=== PATIENT | female | born 1975 | race Caucasian/White ===

== ENCOUNTER 2018-02-26 08:07 | Emergency (ER) | payer OTHER ==
[2018-02-26 08:13] VITALS: BP 138/108
--- NOTE | 2018-02-26 08:31 | EDPHY ---
HPI/HX/ROS/PE/MDM Narrative: CHIEF COMPLAINT: Sore throat HPI: This patient is a 42 y/o female complaining of sore throat. She has associated fever and swollen glands. She has also noted "little pustules" at the back of her throat. Her symptoms began about three days ago. She was evaluated at a urgent care yesterday and had a negative strep test. She was discharged home with ibuprofen. Today, she woke with worse throat pain. She finds it difficult to swallow. Her pain is worse on the left than the right. She has measured her fever at around 101 degrees for the last three days. She denies cough, chest pain, shortness of breath, abdominal pain, urinary complaints, or other associated symptoms. REVIEW OF SYSTEMS: Aside from elements discussed in the HPI, a comprehensive 10-point review of systems was reviewed and is negative. PMH: Denies. 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 Lives in [place]. PHYSICAL EXAM: General:Patient is alert, in no acute distress. ENT:Eyes are normal to inspection. Moderate tonsillar erythema and exudates bilaterally, no asymmetry. Oropharyngeal erythema. Neck: Tender lymphadenopathy bilaterally, primarily on the left. Full range of motion. Respiratory:No respiratory distress. Breath sounds normal bilaterally. Cardiovascular: Regular rate and rhythm. Strong peripheral pulses. Normal cap refill. Neuro: Oriented x3. Normal motor function. Normal sensory function. ED Course: 42 y/o female presents with three day history of worsening sore throat. Exam reveals bilateral tonsillar erythema and exudates. No asymmetry. 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 Plan for IV fluids and IV steroid for swelling reduction. The patient adamantly declines "any sort of needle". I explained the benefits and side effects of Decadron. Patient states she has had an unfavorable reaction to Prednisone in the past and declines steroid medication. She would like to try antibiotics as she feels her symptoms are similar to prior diagnoses episodes of strep throat. Plan to discharge the patient home in good condition with prescription for Amoxicillin and [place] for pain control. Follow up and return precautions discussed. She understands she will need to return for IV rehydration if she is unable to swallow water. She will follow up with primary care. She is comfortable with this plan. MDM: This patient presents with complaint of worsening sore throat after a negative rapid strep test, but unfortunately workup and treatment is limited by patient' s refusal of anything involving a needle. She appears well-hydrated and there is no current evidence of abscess or deep space infection. At her request, we will treat her with amoxicillin. We discussed strict return precautions. General Time Seen by Provider: 02/26/18 08:26 Initial Vital Signs: Initial Vital Signs Temperature (C) 37.6 C 02/26/18 08:10 Heart Rate 104 H 02/26/18 08:10 Respiratory Rate 20 02/26/18 08:10 Blood Pressure 138/108 H 02/26/18 08:10 O2 Sat (%) 96 02/26/18 08:10 O2 Delivery Mode Room Air Allergies/Adverse Reactions: Sulfa (Sulfonamide Antibiotics) Allergy (Verified 02/26/18 08:10) Home Medications: Medication Instructions Recorded Amoxicillin Trihydrate 500 mg PO TID 7 Days cap 02/26/18 [Amoxicillin] Hydrocodone/APAP 5/325 [[place] 1 - 2 tab PO Q4H PRN #7 tab 02/26/18 5/325 (RX)] Departure - Departure Disposition: Home, Routine, Self-Care Clinical Impression: Acute pharyngitis Condition: Good Instructions: Pharyngitis (ED) Additional Instructions: Follow-up with your primary doctor in 2-3 days. Take Amoxicillin as prescribed. Use Tylenol and/or ibuprofen as directed as needed for pain and fever. Take [place] as needed for severe pain. Do not take [place] with Tylenol. Drink plenty of fluids. Return to the Emergency Department for high fever, difficulty swallowing, difficulty tolerating liquids, neck pain or stiffness, shortness of breath or other concerns. Adult Pain & Fever Control: We recommend Acetaminophen (Tylenol) and Ibuprofen (Motrin,Advil) for pain and fever control. When fever is high or pain severe, both drugs can be used at the same time, but at different intervals. Please note the time differences. Your dose is: Acetaminophen 650mg every 4 to 6 hours Ibuprofen 600mg every 6-8 hours with food Note: do not take Acetaminophen with Hydrocodone (Vicodin, Lortab) or Oxycodone (Percocet). These medications also contain Acetaminophen. No more than 3000mg of Acetaminophen should be taken in 24 hours (for an adult). Referrals: Shalom Salcido MD [[facility] [place] - As per Instructions Prescriptions: Amoxicillin Trihydrate [Amoxicillin] 500 mg PO TID 7 Days cap Hydrocodone/APAP 5/325 [[place] 5/325 (RX)] 1 - 2 tab PO Q4H PRN #7 tab PRN Reason: Pain, Moderate Report Scribed for: Donovan Gaona Report Scribed by: Kaur Burton Date of Report: 02/26/18 Time of Report: 08:39 Physician Review and Approval Statement: Portions of this note were transcribed by an ED scribe. I personally performed the history, physical exam, and medical decision making; and confirm the accuracy of the information in the transcribed note.
== END 2018-02-26 08:45 | disposition home or self-care (01) ==
LOC: EDBD 08:07
DX: J02.9 Acute pharyngitis, unspecified (principal)

== ENCOUNTER 2018-02-28 08:12 | Emergency (ER) | payer OTHER ==
--- NOTE | 2018-02-28 08:41 | EDPHY ---
H & P Time Seen by Provider: 02/28/18 08:24 HPI/ROS: CHIEF COMPLAINT: Sore throat HISTORY OF PRESENT ILLNESS: Patient is a 42-year-old female who presents to the emergency department with ongoing sore throat. She states her symptoms started on Saturday. She was seen on Saturday by her primary care physician and had a negative strep screen. On Saturday her symptoms persisted and she came to the emergency department. While here she refused IV access and steroids. She was started on amoxicillin and given Vicodin. Patient states her symptoms have continued. She is not feeling any better."I met my wits end."Patient states she has trouble eating due to the pain. She has no shortness of breath. She has had mild nausea from the medicine but no vomiting. No diarrhea. No abdominal pain. No rash. REVIEW OF SYSTEMS: My complete review of systems is negative except as mentioned in the HPI. Past Medical/Surgical History: Denies Past surgical history: Noncontributory Social history: The patient does not smoke Smoking Status: Never smoked Physical Exam: 37.8, 144/100, 1 1, 18, 97% on room air GENERAL: Mild acute distress, alert. HEENT: Eyes normal to inspection, no signs of dehydration. The patient has pharyngeal erythema with white colored discharge. Uvula is midline. There is no asymmetry. No visible signs of airway occlusion. NECK: [No thyromegaly, mild bilateral anterior lymphadenopathy, supple. No stridor RESPIRATORY: Clear to auscultation bilaterally, no rales, rhonchi or wheezing. CVS: Regular rate and rhythm, no rubs, murmurs, or gallops. ABDOMEN: Soft, nontender, nondistended, no organomegaly. BACK: Normal to inspection, no CVA tenderness. SKIN: Normal color, no rash, warm, dry. No pallor. EXTREMITIES: No pedal edema, no calf tenderness, no joint swelling. NEURO/PSYCH: Alert and oriented, normal mood and affect, normal motor sensory exam. No obvious cranial nerve deficit. Constitutional: Initial Vital Signs Temperature (C) 37.8 C 02/28/18 08:13 Heart Rate 101 H 02/28/18 08:13 Respiratory Rate 18 02/28/18 08:13 Blood Pressure 144/100 H 02/28/18 08:13 O2 Sat (%) 97 02/28/18 08:13 O2 Delivery Mode Room Air Allergies/Adverse Reactions: Sulfa (Sulfonamide Antibiotics) Allergy (Verified 02/28/18 08:13) Home Medications: Medication Instructions Recorded Amoxicillin Trihydrate 500 mg PO TID 7 Days cap 02/26/18 [Amoxicillin] Hydrocodone/APAP 5/325 [[place] 1 - 2 tab PO Q4H PRN #7 tab 02/26/18 5/325 (RX)] Clindamycin HCl [Clindamycin] 300 mg PO TID #30 cap 02/28/18 predniSONE 20 mg PO DAILY 4 Days tab 02/28/18 Medical Decision Making ED Course/Re-evaluation: In the emergency department I discussed possible etiologies with the patient. I answered all her questions. I reviewed the patient's medical record. An IV was placed. She was given 1 L of normal saline. She was given Toradol 30 mg IV. She is given methylprednisolone 125 mg IV. I rechecked the patient while here. She was feeling much better on recheck. She had no swelling. She had no wrist distress. She felt comfortable charge. She was given warnings prior to leaving. She will be switched to clindamycin. She is given prescription. She was also given a prescription for prednisone. Differential Diagnosis: My differential includes but is not limited to pharyngitis, tracheitis, epiglottitis, peritonsillar abscess, retropharyngeal abscess, viral illness, influenza - Data Points Laboratory Results: 02/28/18 09:15 Nasal Influenza A PCR NEGATIVE FOR FLU A (NEGATIVE) Nasal Influenza B PCR NEGATIVE FOR FLU B (NEGATIVE) Medications Given: Discontinued Medications Sodium Chloride (Ns) 1,000 mls @ 0 mls/hr IV EDNOW ONE; Wide Open PRN Reason: Protocol Stop: 02/28/18 08:48 Last Admin: 02/28/18 09:27 Dose: 1,000 mls Ketorolac Tromethamine (Toradol) 30 mg IVP EDNOW ONE Stop: 02/28/18 08:48 Last Admin: 02/28/18 09:27 Dose: 30 mg Methylprednisolone Sodium Succinate (Solu-Medrol) 125 mg IVP EDNOW ONE Stop: 02/28/18 08:49 Last Admin: 02/28/18 09:33 Dose: 125 mg Ondansetron HCl (Zofran) 4 mg IVP EDNOW ONE Stop: 02/28/18 08:48 Last Admin: 02/28/18 09:25 Dose: 4 mg Departure - Departure Disposition: Home, Routine, Self-Care Clinical Impression: Acute pharyngitis Qualifiers: Pharyngitis/tonsillitis etiology: unspecified etiology Qualified Code(s): J02.9 - Acute pharyngitis, unspecified Condition: Good Instructions: Pharyngitis (ED) Additional Instructions: Switch to clindamycin. Discontinue your amoxicillin. Return with increasing pain, shortness of breath, vomiting, present fever or any other concerns. Referrals: Mattie Partida MD [Medical Doctor] - 2-3 days without fail Prescriptions: Clindamycin HCl [Clindamycin] 300 mg PO TID #30 cap predniSONE 20 mg PO DAILY 4 Days tab
[2018-02-28] MEDS ORDERED: NS 1,000 ML IV ONE (08:47)
[2018-02-28] MEDS ORDERED: KETOROLAC 30 MG/1 ML SDV IVP ONE (08:47)
[2018-02-28] MEDS ORDERED: ONDANSETRON 4 MG/2 ML VIAL IVP ONE (08:47)
[2018-02-28] MEDS ORDERED: methylPREDNISolone SOD SUCC 125 MG/2 ML VIAL IVP ONE (08:48)
[2018-02-28 11:39] VITALS: BP 131/87; PULSE 99; RESP 16; TEMP 100.6; O2SAT 94
== END 2018-02-28 11:39 | disposition home or self-care (01) ==
DX: J02.9 Acute pharyngitis, unspecified (principal); E86.9 Volume depletion, unspecified
CPT/HCPCS: 96374; J1885; J2405; J2930

== ENCOUNTER 2018-03-02 06:40 | Inpatient (IN) | payer OTHER ==
--- NOTE | 2018-03-02 07:01 | EDPHY ---
HPI/HX/ROS/PE/MDM Narrative: CHIEF COMPLAINT: Sore throat HPI: The patient is a 42-year-old female with no significant past medical history. This is her 3rd ER visit within the last several days related to sore throat. I initially saw her 4-5 days ago for mild sore throat. At that time she was refusing any IV or blood work and was treated empirically with amoxicillin and Vicodin. She returned 2 days later, was treated with IV fluids , had a negative influenza swab and was switched to clindamycin. She now returns again stating that her sore throat continues to be severe. She denies any unilateral nature to the pain but states she has been in the able now to yogurt because of the pain. She complains of diffuse malaise and has now developed vomiting and diarrhea. She denies any difficulty breathing. She is still able to tolerate water by mouth. REVIEW OF SYSTEMS: Aside from elements discussed in the HPI, a comprehensive 10-point review of systems was reviewed and is negative. PMH: None significant. SOCIAL HISTORY: The patient does not smoke. She denies drug abuse. PHYSICAL EXAM: General:Patient is alert, in no acute distress. She is nontoxic appearing. ENT:Eyes are normal to inspection. Bilateral tonsillomegaly with scattered exudate and erythema is present. There is no asymmetry. There is no drooling. Normal voice. No stridor. Tender cervical lymphadenopathy is present bilaterally. Neck: Normal inspection. Full range of motion. No meningismus. Respiratory:No respiratory distress. Breath sounds normal bilaterally. Cardiovascular: Regular rate and rhythm. Strong peripheral pulses. Normal cap refill. Abdomen:The abdomen is nontender to palpation. There are no peritoneal signs. There are normal bowel sounds. Back: Normal to inspection. No tenderness to palpation. Skin: Normal color. No rash. Warm and dry. Extremities: Normal appearance. Full range of motion. Neuro: Oriented x3. Normal motor function. Normal sensory function. ED Course: 42-year-old female presents with sore throat. This is her 3rd ER visit in the past week, and she is currently on a course of Clindamycin and Prednisone. Exam reveals bilateral tonsil hypertrophy with scattered exudate and erythema. No asymmetry, drooling, or stridor. IV established. Plan for labs including CBC, chemistries, BHCG, and [place] test. Plan to administer 0.2mg IV Dilaudid, 4mg IV Zofran, 1L IV NS for symptom relief. Plan for CT neck to rule out abscess or other acute processes. [place] screen negative. Patient was negative for influenza A and B at her prior ED visit on 02/28/18. Laboratory studies otherwise largely unremarkable. WBC elevated at 12,000. 08:[address] Bautista, radiologist. CT neck negative for abscess or other acute processes. 08:30 Reassessed patient. Discussed imaging results. Patient is tearful throughout our discussion. I offered her discharge home with ENT referral vs. admission. She would like to be admitted as she still feels she is unable to swallow appropriately and is concerned about going home. She continues to feel she is at her "wit's end". 08:37 Spoke with hospitalist service. Plan to consult with ENT. Dr. Nieves accepts admission for pharyngitis. 08:[address] Bautista, radiologist. He notes mild hyperemia of the epiglottis on the patient's neck CT. Patient's clinical presentation is not consistent with epiglottis at this time, but she will be monitored for changing signs and symptoms. 08:46 Consulted with ALEXIA Adams for otolaryngology. ENT will consult the patient as needed. Plan to administer 1gm IV Rocephin. The patient will be admitted to the floor as above. - Data Points Imaging Results: Imaging Impressions Neck CT 03/02/18 07:46 Impression: Inflammatory changes seen in the peritonsillar region as well as in the parapharyngeal tissues. There is heterogeneous attenuation without a definite drainable abscess. Mild hyperemia of the epiglottis is seen. Results called and discussed with Donovan Gaona MD on 03/02/2018 at 8:41 Imaging: Discussed imaging studies w/ score caller Radiologist Laboratory Results: Laboratory Results 03/02/18 07:07 03/02/18 07:07 03/02/18 03/02/18 03/02/18 07:07 07:07 07:07 WBC 11.96 10^3/uL H 10^3/uL (3.80-9.50) RBC 4.35 10^6/uL 10^6/uL (4.18-5.33) Hgb 13.7 g/dL g/dL (12.6-16.3) Hct 39.0 % % (38.0-47.0) MCV 89.7 fL fL (81.5-99.8) MCH 31.5 pg pg (27.9-34.1) MCHC 35.1 g/dL g/dL (32.4-36.7) RDW 11.8 % % (11.5-15.2) Plt Count 441 10^3/uL H 10^3/uL (150-400) MPV 10.0 fL fL (8.7-11.7) Neut % (Auto) 72.1 % % (39.3-74.2) Lymph % (Auto) 16.6 % % (15.0-45.0) [place] % (Auto) 10.5 % % (4.5-13.0) Eos % (Auto) 0.0 % L % (0.6-7.6) Baso % (Auto) 0.3 % % (0.3-1.7) Nucleat RBC Rel Count 0.0 % % (0.0-0.2) Absolute Neuts (auto) 8.63 10^3/uL H 10^3/uL (1.70-6.50) Absolute Lymphs (auto) 1.98 10^3/uL 10^3/uL (1.00-3.00) Absolute Monos (auto) 1.25 10^3/uL H 10^3/uL (0.30-0.80) Absolute Eos (auto) 0.00 10^3/uL L 10^3/uL (0.03-0.40) Absolute Basos (auto) 0.04 10^3/uL 10^3/uL (0.02-0.10) Absolute Nucleated RBC 0.00 10^3/uL 10^3/uL (0-0.01) Immature Gran % 0.5 % % (0.0-1.1) Immature Gran # 0.06 10^3/uL 10^3/uL (0.00-0.10) Sodium 142 mEq/L mEq/L (135-145) Potassium 3.3 mEq/L L mEq/L (3.5-5.2) Chloride 102 mEq/L mEq/L (97-110) Carbon Dioxide 26 mEq/l mEq/l (22-31) Anion Gap 14 mEq/L mEq/L (8-16) BUN 9 mg/dL mg/dL (7-23) Creatinine 0.7 mg/dL mg/dL (0.6-1.0) Estimated GFR > 60 Glucose 83 mg/dL mg/dL (70-100) Calcium 8.9 mg/dL mg/dL (8.5-10.4) Total Bilirubin 0.5 mg/dL mg/dL (0.1-1.4) Conjugated Bilirubin 0.3 mg/dL mg/dL (0.0-0.5) Unconjugated Bilirubin 0.2 mg/dL mg/dL (0.0-1.1) AST 23 IU/L IU/L (14-46) ALT 38 IU/L IU/L (9-52) Alkaline Phosphatase 86 IU/L IU/L (38-126) Total Protein 7.7 g/dL g/dL (6.3-8.2) Albumin 4.0 g/dL g/dL (3.5-5.0) Beta HCG, Qual NEGATIVE Monoscreen NEGATIVE (NEGATIVE) Medications Given: Ceftriaxone Sodium/Dextrose (Rocephin 1 Gm (Premix)) 50 mls @ 100 mls/hr IV EDNOW ONE PRN Reason: Protocol Stop: 03/02/18 09:15 Last Admin: 03/02/18 08:55 Dose: 50 mls Discontinued Medications Hydromorphone HCl (Dilaudid) 0.2 mg IVP EDNOW ONE Stop: 03/02/18 07:05 Last Admin: 03/02/18 07:17 Dose: 0.2 mg Sodium Chloride (Ns) 1,000 mls @ 0 mls/hr IV ONCE ONE; Wide Open PRN Reason: Protocol Stop: 03/02/18 07:04 Last Admin: 03/02/18 07:17 Dose: 1,000 mls Sodium Chloride (Ns) 1,000 mls @ 0 mls/hr IV ONCE ONE PRN Reason: Wide Open Stop: 03/02/18 08:11 Last Admin: 03/02/18 08:11 Dose: 1,000 mls Ondansetron HCl (Zofran) 4 mg IVP EDNOW ONE Stop: 03/02/18 07:20 Last Admin: 03/02/18 07:23 Dose: 4 mg General Time Seen by Provider: 03/02/18 06:50 Initial Vital Signs: Initial Vital Signs Temperature (C) 37.2 C 03/02/18 06:46 Heart Rate 95 03/02/18 06:46 Respiratory Rate 16 03/02/18 06:46 Blood Pressure 154/114 H 03/02/18 06:46 O2 Delivery Mode Room Air Allergies/Adverse Reactions: clindamycin Allergy (Verified 03/02/18 08:58) Sulfa (Sulfonamide Antibiotics) Allergy (Verified 03/02/18 06:45) Home Medications: Medication Instructions Recorded Clindamycin HCl [Clindamycin] 300 mg PO TID #30 cap 02/28/18 predniSONE 20 mg PO DAILY 4 Days tab 02/28/18 Departure - Departure Disposition: [facility] Inpatient Acute Clinical Impression: Pharyngitis Qualifiers: Pharyngitis/tonsillitis etiology: other specified organisms Qualified Code(s): J02.8 - Acute pharyngitis due to other specified organisms Condition: Fair Report Scribed for: Donovan Gaona Report Scribed by: Kaur Burton Date of Report: 03/02/18 Time of Report: 08:26 Physician Review and Approval Statement: Portions of this note were transcribed by an ED scribe. I personally performed the history, physical exam, and medical decision making; and confirm the accuracy of the information in the transcribed note.
[2018-03-02] MEDS ORDERED: NS 1,000 ML IV ONE ×2 (07:03→08:10)
[2018-03-02] MEDS ORDERED: HYDROmorphONE/DILAUDID 2 MG/ML INJ IVP ONE (07:04)
[2018-03-02] MEDS ORDERED: ONDANSETRON 4 MG/2 ML VIAL IVP ONE (07:19)
[2018-03-02 07:20] LABS: PLATELET COUNT 441 10^3/uL (150-400)
[2018-03-02] MEDS ORDERED: IOPAMIDOL (ISOVUE-300) 100 ML BTL ONE (07:51)
[2018-03-02] MEDS ORDERED: OXYCODONE/APAP 5/325 TAB PO PRN (08:44)
[2018-03-02] MEDS ORDERED: ACETAMINOPHEN 325 MG TAB PO PRN (09:58)
[2018-03-02] MEDS ORDERED: LORazepam 0.5 MG TAB PO PRN (09:58)
[2018-03-02] MEDS ORDERED: HYDROmorphONE/DILAUDID 1 MG/ML INJ IVP PRN (09:58)
[2018-03-02] MEDS ORDERED: ONDANSETRON DISINTEGRATING 4 MG TAB PO PRN (09:58)
--- NOTE | 2018-03-02 10:43 | GHP ---
[f rep st] HISTORY AND PHYSICAL DATE OF ADMISSION: 03/02/2018 CHIEF COMPLAINT: Sore throat. HISTORY OF PRESENT ILLNESS: This is a 42-year-old female, who had a sore throat , which started 6 days ago. She was initially seen at urgent care, where she had a negative strep test. She has been seen at the emergency department three additional times. She has been given antibiotics, including amoxicillin. She thus represented, this was changed to clindamycin. She had significant nausea and diarrhea with this. She is not having any diarrhea anymore. She represented to the ED today, tearful and was thus admitted. She describes the pain as severe, burning. She has some pain in bilateral jaws. She has no difficulty breathing. She has had difficulty swallowing due to pain. She has had strep throat before, though she has never had a sore throat this persistent or severe. PAST MEDICAL/SURGICAL HISTORY: None. MEDICATIONS: Please see medication reconciliation. ALLERGIES: Sulfa, clindamycin. SOCIAL HISTORY: She moved to [place] from [place] about 11 months ago. She does not smoke. She rarely drinks. FAMILY HISTORY: Is notable for uterine cancer in her mother. REVIEW OF SYSTEMS: A 10-point review of systems is conducted and is negative except per HPI. PHYSICAL EXAM: VITAL SIGNS: Blood pressure 120/82, heart rate 81, respiration rate 16, satting 95% on room air. Temperature 36.2. GENERAL: The patient is a pleasant female, looks mildly uncomfortable, lying in bed with a mask. HEENT : Shows her to have some mild pustules in the posterior aspect of her pharynx. She has significant pharyngeal erythema. Exam is limited by the availability of an otoscope. She does have significant bilateral cervical lymphadenopathy. She has no stridor. CARDIOVASCULAR: Shows a regular rate and rhythm. No murmurs, rubs, or gallops. PULMONARY: Show lungs clear to auscultation bilaterally. ABDOMEN: Soft, nontender, nondistended. I did not appreciate any splenomegaly. SKIN: Shows no rash. : No [place]. NEUROLOGIC: Shows her to be alert and oriented x3. She is moving all extremities. PSYCHIATRIC: Shows her to be tearful during my interview. LABS: White count is 11.96. Comprehensive metabolic panel shows a potassium of 3.3, otherwise unremarkable. She had a negative flu swab on 28 of February. Monospot was negative today. DATA: 1. I discussed this with Dr. Gaona. We will admit to med/surg. 2. I reviewed her neck CT, it shows mild hyperemia of the epiglottis with some inflammatory changes seen in the pharynx. There is no drainable abscess. IMPRESSION AND PLAN: A 42-year-old female with acute pharyngitis. Acute pharyngitis: Differential includes bacterial, as well as viral causes. We will send a throat culture. We will check for EBV, as well as CMV by PCR. Also consider acute human immunodeficiency virus, as well as herpes can cause severe pharyngitis. Other bacterial causes could include fusiform, chlamydia, diphtheria. If she does not improve, we will consider history evaluation, as well as testing for these. I think empiric Rocephin is appropriate for now. We will give her intravenous steroids, as she is having difficulty tolerating p.o. ENT has been consulted by the ED, and we will see her as an inpatient. This is a high-risk diagnosis, she will be placed in OBS. /[id number]/MODL MTDD
[2018-03-02] MEDS: ONDANSETRON 4 MG/2 ML VIAL IVP PRN ×2 (11:13→15:41)
[2018-03-02] MEDS: HYDROmorphone HCL/NS 0.5 MG/ML SYR IVP PRN ×4 (11:14→23:52)
[2018-03-02] MEDS ORDERED: CEPACOL LOZENGE PO PRN (15:21)
[2018-03-02] MEDS ORDERED: ACETAMINOPHEN 650 MG/20.3 ML UDCUP PO PRN (15:22)
[2018-03-02] MEDS: NS 1,000 ML IV SCH ×2 (15:35→23:52)
[2018-03-02] MEDS: methylPREDNISolone SOD SUCC 40 MG/ML VIAL IVP SCH ×2 (15:35→20:49)
--- NOTE | 2018-03-02 17:44 | GCON ---
[f rep st] CONSULTATION DATE OF CONSULTATION: 03/02/2018 CHIEF COMPLAINT: Severe pharyngeal pain. HISTORY OF PRESENT ILLNESS: This 42-year-old female noted onset of throat pain approximately 6 days ago. She presented 5 days ago to an urgent care facility, where a strep test was performed and was f ound to be negative. She noted persistence of the sore throat and initially was prescribed amoxicill in. Later, she was switched to clindamycin. The clindamycin resulted in diarrhea. She has undergon e negative Monospot testing as well. She presented to the emergency room today due to severe pharyng eal pain, nausea, and vomiting. She has experienced severe odynophagia and has had difficulty mainta ining hydration. PAST MEDICAL HISTORY: Otherwise, noncontributory. MEDICATIONS: She currently takes no medications, other than the clindamycin previously reported. ALLERGIES: Sulfa. EXAMINATION: GENERAL: The patient is an alert, cooperative female in no apparent distress. VITAL S IGNS: Temperature is 37.9, blood pressure 134/93, respirations were 16, and pulse was 82. HEENT: H ead is normocephalic and atraumatic. Examination of the ears revealed clear tympanic membranes bilat erally. Nasal exam was unremarkable. Oral cavity and oropharynx exam reveals tonsils enlarged 3+ wi th severe bilateral exudate. The remainder of the oral cavity and oropharynx were within normal limi ts. Neck: Tender bilateral jugulodigastric adenopathy, measuring approximately 3 x 2 cm bilaterally . Fiberoptic endoscopy was performed. This revealed the presence of extensive exudate of the base o f tongue/lingual tonsils. No significant edema was noted. The airway was widely patent with no sign of compromise. IMPRESSION: Exudative tonsillitis. Her white count upon admission was 11.96 with an increase in abs olute neutrophils. PLAN: At this point, she is receiving IV Rocephin, as well as methylprednisolone. She also has been placed on Zofran. Throat culture is pending. At this point, I feel that all bacterial and viral pa thogens are covered. Her analgesia is adequately managed with her current hydromorphone, and I expec t her nausea to be improved with Zofran. I expect her to recover and discussed the fact that, althou gh this appears to possibly be bacterial, it may be a viral process which is ongoing. She will be fo llowed both during her hospitalization and thereafter. /[id number]/MODL
[2018-03-03] MEDS: ONDANSETRON 4 MG/2 ML VIAL IVP PRN ×2 (04:31→09:37)
[2018-03-03] MEDS: HYDROmorphone HCL/NS 0.5 MG/ML SYR IVP PRN ×5 (04:31→20:27)
[2018-03-03] MEDS: methylPREDNISolone SOD SUCC 40 MG/ML VIAL IVP SCH ×3 (05:37→22:05)
--- NOTE | 2018-03-03 08:26 | SOAPPROG ---
SOAP Progress Note Assessment/Plan: Assessment/Plan: 42 year old female with exudative tonsillitis. It is likely non-strep bacterial. She is improving. She remains on IV rocephin and methylprednisolone. We will continue to follow during hospitalization and on follow up. 03/03/18 08:28 Subjective: Throat pain much improved. Reports pain 7/10. Some nausea. Objective: Vital Signs Temp Pulse Resp BP Pulse Ox 36.8 C 80 16 139/97 H 94 03/03/18 08:13 03/03/18 08:13 03/03/18 08:13 03/03/18 08:13 03/03/18 08:13 Microbiology 03/02/18 11:00 Gram Stain - Final Throat - Swab 03/02/18 03/03/18 03/04/18 05:59 05:59 05:59 Intake Total 2600 1100 Balance 2600 1100 Physical Exam - Physical Exam General Appearance: alert, no apparent distress EENT: other (Exudative tonsillitis. No abscess appreciated. ) Respiratory: normal breath sounds, No stridor, No wheezing ICD10 Worksheet Patient Problems: Problems Problem Status Onset Pharyngitis Acute
[2018-03-03] MEDS ORDERED: D5W 1/2 NS W/ 20 KCl/L 1,000 ML IV SCH (08:30)
--- NOTE | 2018-03-03 10:11 | ASMTCMCOM ---
CM Note CM Note Notes: Chart reviewed. 42 year old female admitted from ED with c/o serve sore throat. Normally independent. No current needs identified. CM available should needs arise. Date Signed: 03/03/2018 10:11 AM Electronically Signed By:Trish Golden RN
--- NOTE | 2018-03-03 14:12 | HOSPPROG ---
Hospitalist Progress Note Assessment/Plan: # exudative tonsillitis - appreciate ENT eval - cont rocephin and solu-medrol - encourage PO intake today and PO pain control (still on dilaudid IV, high risk) - f/u throat culture and viral studies Subjective: throat better today, but still very severe Objective: Vital Signs Temp Pulse Resp BP Pulse Ox 36.8 C 80 16 139/97 H 94 03/03/18 11:49 03/03/18 08:13 03/03/18 08:13 03/03/18 08:13 03/03/18 08:13 Microbiology 03/02/18 11:00 Gram Stain - Final Throat - Swab 03/02/18 03/03/18 03/04/18 05:59 05:59 05:59 Intake Total 2600 1100 Balance 2600 1100 - Physical Exam Constitutional: no apparent distress, appears nourished Ears, Nose, Mouth, Throat: other (cervical LAD) Cardiovascular: regular rate and rhythym, no murmur, rub, or gallop Respiratory: no respiratory distress, no rales or rhonchi, clear to auscultation Gastrointestinal: soft, non-tender abdomen, no palpable masses ICD10 Worksheet Patient Problems: Problems Problem Status Onset Pharyngitis Acute
--- NOTE | 2018-03-03 14:56 | PDMN ---
Medical Necessity Medical necessity: Patient meets inpatient criteria per physician note and [facility] Head and Neck Disease GRG (severe acute pharyngitis x 6 days despite p.o amoxicillin and clindamycin, ongoing inability to tolerate p.o. intake, LOS will be > 2 midnights for ongoing IV hydration, IV steroids and antibiotics, freq IV Dilaudid q 2-4 hrs for pain control.)
[2018-03-04] MEDS: HYDROmorphone HCL/NS 0.5 MG/ML SYR IVP PRN ×2 (02:03→05:57)
[2018-03-04] MEDS: methylPREDNISolone SOD SUCC 40 MG/ML VIAL IVP SCH ×2 (05:57→14:16)
[2018-03-04] MEDS: OXYCODONE/APAP 5/325 TAB PO PRN ×3 (08:07→18:36)
[2018-03-04 15:45] VITALS: BP 157/99; PULSE 66; RESP 16; TEMP 98.5; O2SAT 94
--- NOTE | 2018-03-04 16:03 | ASMTCMCOM ---
CM Note CM Note Notes: Chart reviewed. Patient reports feeling much better today. Medically cleared to d/c home per hospital medicine. No needs identified. CM available should needs arise. Date Signed: 03/04/2018 04:03 PM Electronically Signed By:Trish Golden RN
--- NOTE | 2018-03-05 08:36 | GDS ---
[f rep st] DISCHARGE SUMMARY FINAL DIAGNOSES: 1. Exudative tonsillitis. 2. Uncontrolled pain. 3. Inability to tolerate p.o. HOSPITAL COURSE: A 42-year-old female, who presented with severe exudative tonsillitis. Seen by Dr. Welch who performed a laryngoscopy, confirming the above. Suspected to be non-strep as she reported negative strep test, had a throat culture negative for strep here. CMV and EBV PCRs are pending at th e time of discharge. She initially required IV pain control, as well as IV steroids. She was put on R ocephin for antibiotics. On the 3rd day of her hospitalization, she improved significantly, is tolera ting p.o. She feels comfortable being discharged. She will be discharged on additional 7 days of cefd inir. I have given her additional 5 days of prednisone therapy. She will follow up with Dr. Welch in 1-2 weeks. I provided her an airline excuse as she has a work trip for next week. LABORATORY STUDIES PENDING AT THE TIME OF DISCHARGE: CMV and EBV PCR. BILLING: I spent less than 30 minutes on the day of discharge coordinating care. /[id number]/MODL
== END 2018-03-04 18:55 | disposition home or self-care (01) | DRG 153 ==
LOC: F1N 09:23 → OBSVTOIN 03-03 14:12
PROVIDERS: ADMIT Student in an Organized Health Care Education/Training Program; ATTEND Student in an Organized Health Care Education/Training Program
PROC: 0CJS8ZZ Inspection of Larynx, Via Natural or Artificial Opening Endoscopic (ICD-10-PCS; principal; 2018-03-03)
DX: J03.90 Acute tonsillitis, unspecified (principal)
CPT/HCPCS: 87496-90; 96374; G0378; J0696; J1170; J2405; J2920; Q9967

== ENCOUNTER 2018-03-09 07:59 | Emergency (ER) | payer OTHER ==
[2018-03-09] MEDS ORDERED: NS 1,000 ML IV ONE ×2 (08:25→09:01)
[2018-03-09] MEDS ORDERED: LORazepam 2 MG/ML INJ IVP ONE (08:25)
--- NOTE | 2018-03-09 08:59 | EDPHY ---
H & P Smoking Status: Never smoked Time Seen by Provider: 03/09/18 08:20 HPI/ROS: CHIEF COMPLAINT: Vomiting, diarrhea, headache, myalgias HISTORY OF PRESENT ILLNESS: 42-year-old female presents to the emergency department with vomiting and diarrhea that is been intermittent over the last 1 week, however were since yesterday. She has had 4 episodes of diarrhea today. She has felt nauseous and has been vomiting. She has been seen multiple times over the last 10 days in the emergency department for her sore throat. She was admitted to the hospital after her 3rd visit to the emergency department for ongoing sore throat and difficulty swallowing. She was seen by Dr. Welch while she was in the hospital. She was started on IV antibiotics. She has been taking cefdinir for the last 1 week twice daily. She has not taken her dose today because she has been vomiting. She feels feverish and chilled. She states her sore throat is better. She has some abdominal cramping. She thinks the Zofran she was prescribed is causing a"migraine headache." No history of migraine headaches. The last dose of Zofran was 3 o'clock this morning when she felt nauseous and was vomiting. No known ill contacts. REVIEW OF SYSTEMS: Constitutional: Subjective fevers, chills Eyes: No double or blurry vision. ENT: No sore throat. Respiratory: No cough, no shortness of breath. Cardiac: No chest pain. Gastrointestinal: Vomiting, diarrhea. Genitourinary: No dysuria. Musculoskeletal: No neck or back pain. Skin: No rashes. Neurological: headache. (PravinAngelita M) Past Medical/Surgical History: Recent episode of pharyngitis on antibiotics. Strep was negative. EBV and CMV by PCR were both negative. (ShirleneAngelita cummings M) Social History: Single (Angelita Costello) Physical Exam: General Appearance: Alert, no distress. 128/92, 36.8, 96% on room air. Mentating normally and answering questions appropriately. Resting a darkened room. Eyes: Pupils equal and round. Extraocular motions are all intact. ENT: Mouth: Mucous membranes moist. Respiratory: No wheezing, rhonchi, or rales, lungs are clear to auscultation. Cardiovascular: Regular rate and rhythm. Gastrointestinal: Abdomen is soft and nontender, no masses, no rebound or guarding, bowel sounds normal. Neurological: Alert and oriented x 3, cranial nerves II through XII grossly intact Skin: Warm and dry, no rashes. Musculoskeletal: Nontender to palpate along the cervical, thoracic or lumbar spine. Neck is supple. No nuchal rigidity. Extremities: Full range of motion and no peripheral edema. Psychiatric: Patient is oriented X 3, there is no agitation. (Angelita Costello) Constitutional: Initial Vital Signs Temperature (C) 36.8 C 03/09/18 08:05 Heart Rate 98 03/09/18 08:05 Respiratory Rate 18 03/09/18 08:05 Blood Pressure 128/92 H 03/09/18 08:05 O2 Sat (%) 96 03/09/18 08:05 O2 Delivery Mode Room Air Allergies/Adverse Reactions: Sulfa (Sulfonamide Antibiotics) Allergy (Severe, Verified 03/09/18 08:04) Hives clindamycin Allergy (Intermediate, Verified 03/09/18 08:04) Vomiting Home Medications: Medication Instructions Recorded Cefdinir [Omnicef (*)] 300 mg PO BID #14 cap 03/04/18 Ondansetron Odt [Zofran Odt 4 mg 4 mg PO Q4HRS PRN #20 tab 03/04/18 (*)] oxyCODONE/APAP 5/325 [Percocet 1 - 2 tab PO Q4HRS PRN #20 tab 03/04/18 5/325 (*)] predniSONE [Deltasone] 40 mg PO DAILY #10 tablet 03/04/18 Promethazine HCl [Phenergan 12.5mg 12.5 mg PO Q8 PRN #5 tablet 03/09/18 tab] Medical Decision Making ED Course/Re-evaluation: 42-year-old female presents emergency department with multiple episodes of nausea and vomiting. She was recently admitted to the hospital for non strep infection. She was discharged the hospital and she states since she has been discharged she has had multiple episodes of vomiting and diarrhea. Because this patient was on antibiotics and now complains of profuse diarrhea, C diff culture has been ordered and is negative. Laboratory studies reveal elevated white blood cell count of over 16,000. She had a creatinine 1.3 and she was given IV normal saline. I do not think this patient has an acute abdomen. I do not think imaging studies are indicated. She is comfortable being discharged home. She was tolerating p.o. Fluids upon discharge. She was encouraged to have close follow- up with primary care provider so her laboratory studies could be recheck. (PravinAngelita Pema) I did not see this patient while she was in the emergency department. However her care was discussed with the PA while the patient was in the department. I agree with treatment plan and management (Bhanu Walden) Differential Diagnosis: Including but not limited to gastritis, dehydration, GERD, peptic ulcer disease , acute appendicitis, strep pharyngitis, electrolyte abnormality (ShirlenezoilaAudreyAngelita Pema) - Data Points Laboratory Results: Laboratory Results 03/09/18 08:25 03/09/18 08:25 Medications Given: Discontinued Medications Sodium Chloride (Ns) 1,000 mls @ 0 mls/hr IV ONCE ONE PRN Reason: Wide Open Stop: 03/09/18 08:26 Last Admin: 03/09/18 08:30 Dose: 1,000 mls Sodium Chloride (Ns) 1,000 mls @ 0 mls/hr IV ONCE ONE PRN Reason: Wide Open Stop: 03/09/18 09:02 Last Admin: 03/09/18 09:30 Dose: 1,000 mls Lorazepam (Ativan Injection) 1 mg IVP EDNOW ONE Stop: 03/09/18 08:26 Last Admin: 03/09/18 08:30 Dose: 1 mg Metoclopramide HCl (Reglan Injection) 10 mg IVP EDNOW ONE Stop: 03/09/18 09:02 Last Admin: 03/09/18 09:30 Dose: 10 mg Promethazine HCl (Phenergan) 12.5 mg IVP EDNOW ONE Stop: 03/09/18 10:40 Last Admin: 03/09/18 10:45 Dose: 12.5 mg Departure - Departure Disposition: Home, Routine, Self-Care Clinical Impression: Vomiting, Headache Condition: Good Instructions: Acute Nausea and Vomiting (ED) Additional Instructions: Clear liquids and then slowly advance diet as tolerated. You should have close follow-up with her primary care provider to have her laboratory studies recheck. Drink plenty of fluids. Return if he developed recurring vomiting, decreased urine output, or any other concerns. Referrals: Karli Potter MD [Medical Doctor] - As per Instructions [facility],. [Clinic] - As per Instructions Prescriptions: Promethazine HCl [Phenergan 12.5mg tab] 12.5 mg PO Q8 PRN #5 tablet PRN Reason: P.r.n. Nausea and vomiting
[2018-03-09] MEDS ORDERED: METOCLOPRAMIDE 10 MG/2 ML VIAL IVP ONE (09:01)
[2018-03-09 09:05] LABS: PLATELET COUNT 528 10^3/uL (150-400)
[2018-03-09] MEDS ORDERED: PROMETHAZINE HCL 25 MG/ML INJ IVP ONE (10:39)
[2018-03-09 13:42] VITALS: BP 142/107
--- NOTE | 2018-03-10 10:37 | ASDISCHSUM ---
Discharge Information Plan Status:Home with No Needs Medically Cleared to Leave: Discharge Date:03/09/2018 02:03 PM CM D/C Disposition:Home, Routine, Self-Care ADT D/C Disposition:Home, Routine, Self-Care Projected Discharge Date:03/09/2018 02:03 PM Transportation at D/C:None or Unknown Discharge Delay Reason: Follow-Up Date:03/09/2018 02:03 PM Discharge Slot: Final Diagnosis: Placement Information Patient Contact Information Contact Name:LESLYKARIME Relationship: Address: Home Phone: Work Phone: City: Alternate Phone: State/ZipZap Code: Email: Financial Information Financial Class:HMO and PPO Plans Primary Plan Desc:[employer] Primary Plan Number:[id number] Secondary Plan Desc: Secondary Plan Number: Assessment Information [facility] CM Progress Note CM Note CM Note Notes: Requested to follow up with patient and assist with establishing a PCP and coordinating follow-up care. This CM called [facility] per pt request at time of ED visit, and spoke with Jessica Cordero. Able to get pt an appt tomorrow Saturday03/11/18 at 10:40am (arrival time of 10:30am). Spoke with patient and she said this appointment would work great and that "I'll cancel whatever I have to in order to make it. I am about to run out of medications." Pt provided address, phone number and is aware of arrival time of 10:30am. CM available for further assistance if needed. Date Signed: 03/10/2018 10:34 AM Electronically Signed By:Lexi Cook RN Intervention Information Intervention Type:Post Acute Communication Date of Service:03/10/2018 10:35 AM Patient Type:Emergency Room Staff Member:OSEI Cook Sharon Hours:0.5 Discipline:Cattle [employer] Severity: Comment:Follow up appt at [facility].
== END 2018-03-09 14:03 | disposition home or self-care (01) ==
DX: R11.10 Vomiting, unspecified (principal); R51 Headache
CPT/HCPCS: 96374; J2060; J2550; J2765

== ENCOUNTER 2018-03-10 23:57 | Observation (INO) | payer OTHER ==
--- NOTE | 2018-03-11 00:26 | EDPHY ---
H & P Stated Complaint: Seen for pharyngitis and D/C'd on the 3rd. N/V Time Seen by Provider: 03/11/18 00:26 HPI/ROS: HPI CHIEF COMPLAINT: Nausea and vomiting, abdominal pain HISTORY OF PRESENT ILLNESS: This patient is a 42-year-old female she is otherwise healthy however has been in the emergency room and hospital recently for sore throat. She was admitted initially for an able to tolerate p.o. And sore throat. She was placed on cefdinir. She has 3 doses left. She was seen here in the emergency room yesterday. She presents to the emergency room with vomiting today. Nonbilious nonbloody. No diarrhea. She states she has had nausea vomiting and abdominal pain worse today. Denies fever. Denies chest pain or shortness of breath. Diffuse abdominal pain crampy. With associated nausea. She decided come back to the emergency room due to ongoing nausea vomiting. Past Medical History: Recent throat infection this was strep negative. Past Surgical History: No recent surgery Social History: Denies drugs alcohol tobacco. Family History: Noncontributory ROS REVIEW OF SYSTEMS: A comprehensive 10 point review of systems is otherwise negative aside from elements mentioned in the history of present illness. Exam Constitutional appears well nontoxic no acute distress, triage nursing summary reviewed, vital signs reviewed, awake/alert. Eyes normal conjunctivae and sclera, EOMI, PERRLA. HENT normal inspection, atraumatic, moist mucus membranes, no epistaxis, neck supple/ no meningismus, no raccoon eyes. Respiratory clear to auscultation bilaterally, normal breath sounds, no respiratory distress, no wheezing. Cardiovascular rate normal, regular rhythm, no murmur, no edema, distal pulses normal. Gastrointestinal diffuse tenderness, no peritoneal signs, no rebound, no guarding, normal bowel sounds, no distension, no pulsatile mass. Genitourinary no CVA tenderness. Musculoskeletal no midline vertebral tenderness, full range of motion, no calf swelling, no tenderness of extremities, no meningismus, good pulses, neurovascularly intact. Skin pink, warm, & dry, no rash, skin atraumatic. Neurologic awake, alert and oriented x 3, AAOx3, moves all 4 extremities equally, motor intact, sensory intact, CN II-XII intact, normal cerebellar, normal vision, normal speech. Psychiatric normal mood/affect. Heme/Lymph/Immune no lymphadenopathy. Differential diagnosis includes but is not limited to and in no particular order : Bowel obstruction, appendicitis, gallbladder disease, diverticulitis, colitis , enteritis, perforated viscus, gastritis, GERD, esophagitis, urinary tract infection, pyelonephritis, kidney stones Medical Decision Making: Plan for this patient IV establishment IV fluid bolus , IV nausea medicine, IV fluids, check basic blood work, abdominal labs, urinalysis, given her tenderness on exam and vomiting will proceed with CT scan abdomen pelvis with IV contrast. Re-evaluate. Re-evaluation: CT scan abdomen pelvis with IV contrast called to me by Dr. Daniel. 4.6 cm left adnexal cyst. There are some small liver cyst benign. Very subtle right lower quadrant edema but a normal appendix. Otherwise no acute inflammatory process visualized. 0445: After extensive discussion with the patient and multiple re-evaluations patient is requesting be admitted the hospital for ongoing nausea. She has not had any vomiting here. Her CT scan I do not appreciate acute inflammatory process. Blood work is reassuring. Have given her multiple rounds of medications here and IV fluid patient states she does not feel any better and would like to be admitted to the hospital. Source: Patient - Personal History LMP (Females 10-55): Now Current Tetanus/Diphtheria Vaccine: Yes Current Tetanus Diphtheria and Acellular Pertussis (TDAP): Yes Tetanus Vaccine Date: < 10 years - Medical/Surgical History Hx Asthma: No Hx Chronic Respiratory Disease: No Hx Diabetes: No Hx Cardiac Disease: No Hx Renal Disease: No Hx Cirrhosis: No Hx Alcoholism: No Hx HIV/AIDS: No Hx Splenectomy or Spleen Trauma: No Other PMH: Denies - Social History Smoking Status: Never smoked Constitutional: Initial Vital Signs Temperature (C) 36.8 C 03/11/18 00:13 Heart Rate 98 03/11/18 00:13 Respiratory Rate 16 03/11/18 00:13 Blood Pressure 152/102 H 03/11/18 00:13 O2 Sat (%) 95 03/11/18 00:13 O2 Delivery Mode Room Air Allergies/Adverse Reactions: Sulfa (Sulfonamide Antibiotics) Allergy (Severe, Verified 03/09/18 08:04) Hives clindamycin Allergy (Intermediate, Verified 03/09/18 08:04) Vomiting cefdinir Allergy (Verified 03/11/18 00:17) ondansetron [From Zofran (as hydrochloride)] Allergy (Verified 03/11/18 00:17) Home Medications: Medication Instructions Recorded Cefdinir [Omnicef (*)] 300 mg PO BID #14 cap 03/04/18 Promethazine HCl [Phenergan 12.5mg 12.5 mg PO Q8 PRN #5 tablet 03/09/18 tab] Famotidine [Pepcid 20 MG (*)] 20 mg PO BID #14 tab 03/11/18 Promethazine HCl 25 mg PO Q6-8PRN PRN #10 tablet 03/11/18 Medical Decision Making - Data Points Laboratory Results: Laboratory Results 03/11/18 00:45 03/11/18 00:45 Medications Given: Enoxaparin Sodium (Lovenox) 40 mg SC DAILY MYRNA Stop: 09/07/18 08:59 Last Admin: 03/11/18 11:32 Dose: Not Given Potassium Chloride/Dextrose/Sod Cl (D5w 1/2 Ns W/ 20 Kcl/L) 1,000 mls @ 100 mls /hr IV CONT MYRNA Stop: 09/07/18 04:59 Last Admin: 03/11/18 17:52 Dose: 1,000 mls Promethazine HCl (Phenergan) 6.25 - 12.5 mg IVP Q6HRS PRN PRN Reason: Nausea/Vomiting, Use 2nd Stop: 09/07/18 04:52 Last Admin: 03/11/18 18:41 Dose: 12.5 mg Discontinued Medications Dicyclomine HCl (Bentyl) 20 mg PO EDNOW ONE Stop: 03/11/18 02:41 Last Admin: 03/11/18 02:46 Dose: Not Given Haloperidol Lactate (Haldol Injection) 2.5 mg IVP EDNOW ONE Stop: 03/11/18 03:33 Last Admin: 03/11/18 03:38 Dose: 2.5 mg Sodium Chloride (Ns) 1,000 mls @ 0 mls/hr IV EDNOW ONE; Wide Open PRN Reason: Protocol Stop: 03/11/18 00:33 Last Admin: 03/11/18 00:50 Dose: 1,000 mls Famotidine/Sodium Chloride (Pepcid 20 Mg (Premix)) 50 mls @ 200 mls/hr IV EDNOW ONE Stop: 03/11/18 00:46 Last Admin: 03/11/18 00:49 Dose: 50 mls Sodium Chloride (Ns) 1,000 mls @ 0 mls/hr IV ONCE ONE PRN Reason: Wide Open Stop: 03/11/18 00:34 Last Admin: 03/11/18 01:09 Dose: 1,000 mls Sodium Chloride (Ns) 1,000 mls @ 0 mls/hr IV ONCE ONE PRN Reason: Wide Open Stop: 03/11/18 02:41 Last Admin: 03/11/18 02:42 Dose: 1,000 mls Lorazepam (Ativan Injection) 1 mg IVP EDNOW ONE Stop: 03/11/18 01:58 Last Admin: 03/11/18 02:01 Dose: 1 mg Promethazine HCl (Phenergan) 12.5 mg IVP ONCE ONE Stop: 03/11/18 00:34 Last Admin: 03/11/18 00:51 Dose: 12.5 mg Departure - Departure Disposition: [facility] Inpatient Acute Clinical Impression: Vomiting Qualifiers: Vomiting type: unspecified Vomiting Intractability: non-intractable Nausea presence: with nausea Qualified Code(s): R11.2 - Nausea with vomiting, unspecified Condition: Good
[2018-03-11] MEDS ORDERED: NS 1,000 ML IV ONE ×3 (00:32→02:40)
[2018-03-11] MEDS ORDERED: FAMOTIDINE 20 MG/NACL 50 ML IV ONE (00:32)
[2018-03-11] MEDS ORDERED: PROMETHAZINE HCL 25 MG/ML INJ IVP ONE (00:33)
[2018-03-11] MEDS ORDERED: IOPAMIDOL (ISOVUE-300) 100 ML BTL ONE (00:38)
[2018-03-11 01:04] LABS: PLATELET COUNT 557 10^3/uL (150-400)
[2018-03-11 01:12] LABS: INR 1.05 (0.83-1.16); PROTIME(PATIENT) 13.9 SEC (12.0-15.0)
[2018-03-11] MEDS ORDERED: LORazepam 2 MG/ML INJ IVP ONE (01:57)
[2018-03-11] MEDS ORDERED: LORazepam 2 MG/ML INJ ONE (01:58)
[2018-03-11] MEDS: DICYCLOMINE 10 MG CAP PO ONE ×2 (02:42→02:46)
[2018-03-11] MEDS ORDERED: HALOPERIDOL LACT 5 MG/ML INJ IVP ONE (03:32)
[2018-03-11] MEDS ORDERED: ONDANSETRON 4 MG/2 ML VIAL IVP PRN (04:53)
[2018-03-11] MEDS ORDERED: ACETAMINOPHEN 325 MG TAB PO PRN (04:53)
[2018-03-11] MEDS ORDERED: ONDANSETRON DISINTEGRATING 4 MG TAB PO PRN (04:53)
--- NOTE | 2018-03-11 05:17 | PDGENHP ---
History and Physical - Chief Complaint Nausea, vomiting - History of Present Illness 42 yo F w/ recent admission for tonsillitis presents with nausea and vomiting. Patient states she has experienced nausea, vomiting, all over body pain, and loose stools since being discharged from the hospital on 03/04. She was prescribed cefdinir for exudative tonsillitis and thinks she has not been tolerating this well. She does say her throat pain is now gone. She is unable to tolerate PO. She has been to the ED several times over the last week with similar symptoms, including evaluation with a negative C. Diff test on 03/09. In the ED her evaluation is notable mostly for PITA. CT scan comments on possible very early appendicitis but per discussion with ED physician Dr. Sanchez this is deemed unlikely. History Information - Allergies/Home Medication List Allergies/Adverse Reactions: Sulfa (Sulfonamide Antibiotics) Allergy (Severe, Verified 03/09/18 08:04) Hives clindamycin Allergy (Intermediate, Verified 03/09/18 08:04) Vomiting cefdinir Allergy (Verified 03/11/18 00:17) ondansetron [From Zofran (as hydrochloride)] Allergy (Verified 03/11/18 00:17) I have personally reviewed and updated: family history, medical history - Past Medical History Additional medical history: Exudative tonisillitis - Family History Additional family history: Denies - Social History Smoking Status: Never smoked Review of Systems Review of Systems: ROS: 10pt was reviewed & negative except for what was stated in HPI & below Physical Exam Physical Exam: Temp Pulse Resp BP Pulse Ox 36.8 C 100 20 160/105 H 96 03/11/18 00:13 03/11/18 02:35 03/11/18 02:35 03/11/18 02:35 03/11/18 02:35 Constitutional: appears nourished, uncomfortable Eyes: PERRL, EOMI Ears, Nose, Mouth, Throat: moist mucous membranes, no oral mucosal ulcers Cardiovascular: regular rate and rhythym, no murmur, rub, or gallop Respiratory: no respiratory distress, clear to auscultation Gastrointestinal: normoactive bowel sounds, tenderness (LLQ), No guarding, No rebound, No distension Skin: warm, normal color Musculoskeletal: full muscle strength, no muscle tenderness Neurologic: AAOx3, CN II-XII Intact Psychiatric: interacting appropriately, not anxious Lab Data & Imaging Review 03/11/18 00:45 03/11/18 00:45 WBC 13.40 10^3/uL (3.80-9.50) H 03/11/18 00:45 RBC 5.13 10^6/uL (4.18-5.33) 03/11/18 00:45 Hgb 15.9 g/dL (12.6-16.3) 03/11/18 00:45 Hct 45.1 % (38.0-47.0) 03/11/18 00:45 MCV 87.9 fL (81.5-99.8) 03/11/18 00:45 MCH 31.0 pg (27.9-34.1) 03/11/18 00:45 MCHC 35.3 g/dL (32.4-36.7) 03/11/18 00:45 RDW 11.7 % (11.5-15.2) 03/11/18 00:45 Plt Count 557 10^3/uL (150-400) H 03/11/18 00:45 MPV 9.8 fL (8.7-11.7) 03/11/18 00:45 Neut % (Auto) 63.9 % (39.3-74.2) 03/11/18 00:45 Lymph % (Auto) 26.1 % (15.0-45.0) 03/11/18 00:45 [place] % (Auto) 8.9 % (4.5-13.0) 03/11/18 00:45 Eos % (Auto) 0.4 % (0.6-7.6) L 03/11/18 00:45 Baso % (Auto) 0.3 % (0.3-1.7) 03/11/18 00:45 Nucleat RBC Rel Count 0.0 % (0.0-0.2) 03/11/18 00:45 Absolute Neuts (auto) 8.57 10^3/uL (1.70-6.50) H 03/11/18 00:45 Absolute Lymphs (auto) 3.50 10^3/uL (1.00-3.00) H 03/11/18 00:45 Absolute Monos (auto) 1.19 10^3/uL (0.30-0.80) H 03/11/18 00:45 Absolute Eos (auto) 0.05 10^3/uL (0.03-0.40) 03/11/18 00:45 Absolute Basos (auto) 0.04 10^3/uL (0.02-0.10) 04 00:45 Absolute Nucleated RBC 0.00 10^3/uL (0-0.01) 03/11/18 00:45 Immature Gran % 0.4 % (0.0-1.1) 03/11/18 00:45 Immature Gran # 0.05 10^3/uL (0.00-0.10) 03/11/18 00:45 PT 13.9 SEC (12.0-15.0) 03/11/18 00:45 INR 1.05 (0.83-1.16) 03/11/18 00:45 APTT 24.5 SEC (23.0-38.0) 03/11/18 00:45 VBG Lactic Acid 1.3 mmol/L (0.7-2.1) 03/11/18 00:45 Sodium 146 mEq/L (135-145) H 03/11/18 00:45 Potassium 3.5 mEq/L (3.5-5.2) 03/11/18 00:45 Chloride 106 mEq/L (97-110) 03/11/18 00:45 Carbon Dioxide 25 mEq/l (22-31) 03/11/18 00:45 Anion Gap 15 mEq/L (8-16) 03/11/18 00:45 BUN 16 mg/dL (7-23) 03/11/18 00:45 Creatinine 1.5 mg/dL (0.6-1.0) H 03/11/18 00:45 Estimated GFR 38 03/11/18 00:45 Glucose 98 mg/dL (70-100) 03/11/18 00:45 Calcium 10.5 mg/dL (8.5-10.4) H 03/11/18 00:45 Total Bilirubin 1.2 mg/dL (0.1-1.4) 03/11/18 00:45 Conjugated Bilirubin 0.3 mg/dL (0.0-0.5) 03/11/18 00:45 Unconjugated Bilirubin 0.9 mg/dL (0.0-1.1) 03/11/18 00:45 AST 19 IU/L (14-46) 03/11/18 00:45 ALT 34 IU/L (9-52) 03/11/18 00:45 Alkaline Phosphatase 80 IU/L (38-126) 03/11/18 00:45 Total Protein 8.4 g/dL (6.3-8.2) H 03/11/18 00:45 Albumin 4.3 g/dL (3.5-5.0) 03/11/18 00:45 Lipase 273 IU/L (23-300) 03/11/18 00:45 Beta HCG, Qual NEGATIVE 03/11/18 00:45 Urine Color PALE YELLOW 03/11/18 01:40 Urine Appearance CLEAR 03/11/18 01:40 Urine pH 6.0 (5.0-7.5) 03/11/18 01:40 Ur Specific [place] 1.003 (1.002-1.030) 03/11/18 01:40 Urine Protein NEGATIVE (NEGATIVE) 03/11/18 01:40 Urine Ketones NEGATIVE (NEGATIVE) 03/11/18 01:40 Urine Blood 1+ (NEGATIVE) H 03/11/18 01:40 Urine Nitrate NEGATIVE (NEGATIVE) 03/11/18 01:40 Urine Bilirubin NEGATIVE (NEGATIVE) 03/11/18 01:40 Urine Urobilinogen NEGATIVE EU (0.2-1.0) 03/11/18 01:40 Ur Leukocyte Esterase NEGATIVE (NEGATIVE) 03/11/18 01:40 Urine RBC 1-3 /hpf (0-3) 03/11/18 01:40 Urine WBC 1-3 /hpf (0-3) 03/11/18 01:40 Ur Epithelial Cells TRACE /lpf (NONE-1+) 03/11/18 01:40 Urine Glucose NEGATIVE (NEGATIVE) 03/11/18 01:40 Urine Opiates Screen NEGATIVE (NEGATIVE) 03/11/18 01:40 Urine Barbiturates NEGATIVE (NEGATIVE) 03/11/18 01:40 Ur Phencyclidine Scrn NEGATIVE (NEGATIVE) 03/11/18 01:40 Ur Amphetamine Screen NEGATIVE (NEGATIVE) 03/11/18 01:40 U Benzodiazepines Scrn NEGATIVE (NEGATIVE) 04/10/18 01:40 Urine Cocaine Screen NEGATIVE (NEGATIVE) 03/11/18 01:40 U Marijuana (THC) Screen NEGATIVE (NEGATIVE) 03/11/18 01:40 Imaging Review: CT A/P Prelim: ? very eary appendicitis 4.6cm L adnexal cyst called Almaz at 2:15 am Assessment & Plan Assessment: 42 yo F w/ recent admission for treatment of tonsillitis presents with nausea and vomiting. Plan: 1. Nausea, vomiting - Unclear etiology, possibly related to antibiotic therapy. CT scan does comment on possible, very early appendicitis but exam is reassuring and patient has no tenderness in RLQ. C. Diff test negative on 03/09. - Admit for observation - Serial abdominal exams - Clear liquid diet, ADAT - mIVF w/ K, anti-emetics PRN 2. PITA - Serum creatinine 1.5 on admission, presumably 2/2 poor PO intake from above. - S/p 2 L IVF, monitor BMP - Will check FeNa (although after IVF) 3. Leukocytosis - Unclear source, improving from last check. Monitor for s/s of infection. 4. Recent exudative tonsillitis - S/p 9 days of cephalosporin therapy, will hold further antibiotics for now. Patient denies throat pain. 5. Hypernatremia - Mild, D5-1/2 NS for maintenance fluids. Diet - Clears, ADAT Code - Full Ppx - LMWH Dispo - Admit under observation status
[2018-03-11] MEDS: D5W 1/2 NS W/ 20 KCl/L 1,000 ML IV SCH ×2 (06:35→17:52)
--- NOTE | 2018-03-11 10:30 | HOSPPROG ---
Hospitalist Progress Note Assessment/Plan: Healthy 42-year-old woman recently admitted for tonsillitis is admitted with abdominal pain nausea vomiting. She was here primarily for sore throat a week ago was treated with different antibiotics all of which caused abdominal upset. CT of her neck revealed some tonsillitis and inflammatory changes. She has been on prednisone and antibiotics for the last week and finally her sore throat is improving to a point where she is even able to eat and drink however she has since developed severe nausea vomiting abdominal pain. She is otherwise healthy and on no medications. # abdominal pain: Exam notable for some mild tenderness in the right upper quadrant and right lower quadrant without noted guarding or rebound. She also has a leukocytosis. CT reviewed and showed possible appendiceal inflammation which was equivocal * Continue supportive care * Discussed with Dr. Whelan and will see the patient in consultation * NPO for now # sore throat/tonsillitis negative etiology found. Symptoms improved and she has been intolerant of most antibiotics. * Stop antibiotics * Follow clinically * Consult ENT if his symptoms worsen otherwise she will follow-up as an outpatient Subjective: Patient new to me and chart reviewed. She complains of ongoing nausea vomiting and abdominal pain. Her sore throat is slightly improved but still present. Objective: Vital Signs Temp Pulse Resp BP Pulse Ox 36.6 C 75 16 152/106 H 94 03/11/18 08:39 03/11/18 08:39 03/11/18 08:39 03/11/18 08:39 03/11/18 08:39 03/10/18 03/11/18 03/12/18 05:59 05:59 05:59 Intake Total 3000 Balance 3000 PT 13.9 SEC (12.0-15.0) 03/11/18 00:45 INR 1.05 (0.83-1.16) 03/11/18 00:45 - Physical Exam Constitutional: uncomfortable Eyes: PERRL, EOMI Ears, Nose, Mouth, Throat: moist mucous membranes Cardiovascular: regular rate and rhythym, no murmur, rub, or gallop Respiratory: no respiratory distress, clear to auscultation Gastrointestinal: normoactive bowel sounds, tenderness (Right upper and right lower quadrant), No rebound, No distension Genitourinary: no bladder fullness Skin: warm Neurologic: AAOx3 Psychiatric: interacting appropriately, not anxious ICD10 Worksheet Patient Problems: Problems Problem Status Onset Vomiting Acute Pharyngitis Acute
[2018-03-11] MEDS: ENOXAPARIN 40 MG/0.4 ML SYR SC SCH (11:32)
--- NOTE | 2018-03-11 12:14 | SOAPPROG ---
SOAP Progress Note Assessment/Plan: Assessment: full dictation to follow in brief, severe upper URI where unable to even swallow her spit Several different antibiotics and steroids Developed abdominal pain with abx. CT with minimal evidence for possible early appendicitis RUQ normal More tender in epigastrum Suspect irritable bowel from the abx DDX: Ulcer from stress and poor eating habits due to recent uri vs appy. Will follow Plan: 03/11/18 12:12 Objective: Vital Signs Temp Pulse Resp BP Pulse Ox 36.6 C 75 16 152/106 H 94 03/11/18 08:39 03/11/18 08:39 03/11/18 08:39 03/11/18 08:39 03/11/18 08:39 03/10/18 03/11/18 03/12/18 05:59 05:59 05:59 Intake Total 3000 Balance 3000 PT 13.9 SEC (12.0-15.0) 03/11/18 00:45 INR 1.05 (0.83-1.16) 03/11/18 00:45 ICD10 Worksheet Patient Problems: Problems Problem Status Onset Vomiting Acute Pharyngitis Acute
[2018-03-11] MEDS: PROMETHAZINE HCL 25 MG/ML INJ IVP PRN (18:41)
--- NOTE | 2018-03-11 21:59 | GCON ---
[f rep st] CONSULTATION DATE OF CONSULTATION: 03/11/2018 REFERRING PHYSICIAN: Ibis Quevedo MD REASON FOR CONSULTATION: Rule out appendicitis. HISTORY OF PRESENT ILLNESS: The patient is a 42-year-old woman who recently moved from [place]. She was at work last week when she developed a severe sore throat. She has been seen at numerous [facility] ent cares and emergency rooms. At one point, her throat was so sore and swollen she could not even s wallow her own spit. She has been seen by a provider on February 26, , March 03, March 09, and was admitted on March 11. Her workup has included a neck CT on March 02, which showed inflammator y changes in the peritonsillar regions as well as in the parapharyngeal tissues. There was no obviou s drainable abscess. There was mild hyperemia of the epiglottis. She has been on a variety of antib iotics. Some she was unable to swallow and changed. She was then on clindamycin. She then developed pain in her abdomen. She was admitted back to the hospital on March 11. She curtis d a CT scan performed of her abdomen and pelvis, which showed subtle evidence for possible very early appendicitis. The appendix tip was normal. There was a trace amount of free fluid in the pelvis. The report describes subtle edema in the right lower quadrant in the general vicinity of an otherwise normal-appearing cecum and appendix. She had a right upper quadrant ultrasound performed, which did not show any stones or inflammation. Her laboratory work is significant for a white blood cell count of 13.40, which is lower than it was yesterday. She is still having generalized abdominal pain. It is not localized in the right lower q uadrant. Her throat is improved somewhat. PAST MEDICAL HISTORY: Tonsillitis. SOCIAL HISTORY: She denies tobacco use. FAMILY HISTORY: None. REVIEW OF SYSTEMS: Significant for upper respiratory symptoms, nausea, vomiting, generalized abdomin al pain, loose stools. PHYSICAL EXAM: VITAL SIGNS: Reviewed. She is afebrile. GENERAL: Pleasant, well-nourished, well-g roomed woman lying in bed. HEENT: Normocephalic. No gross hearing deficits. Pupils equal and roun d. No scleral icterus. LUNGS: Clear to auscultation bilaterally. No increased work of breathing. CARDIAC: Regular rate. ABDOMEN: Bowel sounds present. She is soft. She has no peritoneal signs. Heel tap negative. Negative Rovsing sign. She is most tender in the epigastrium. SKIN: Warm and dry. MUSCULOSKELETAL: 5/5 strength, upper and lower extremities. NEURO: Grossly intact. RESULTS REVIEWED: Personally reviewed the results of her CT scan, her laboratory work. I discussed the case with Dr. Quevedo. I reviewed her previous admissions as detailed in the HPI. IMPRESSION AND PLAN: The patient is a 42-year-old woman with severe tonsillitis and now with nausea, vomiting, abdominal pain. I do not believe that her symptoms correlate well with acute appendicitis . I will continue to follow her. Differential diagnosis would include ulcer. Her Clostridium diffi cile test was negative. It could be that her stomach is just irritated from all of the antibiotics. In the event that this does represent early appendicitis, I will continue to follow her. Clear liqu ids, advance as tolerated. /[id number]/MODL
[2018-03-12] MEDS: PROMETHAZINE HCL 25 MG/ML INJ IVP PRN (01:54)
[2018-03-12] MEDS: D5W 1/2 NS W/ 20 KCl/L 1,000 ML IV SCH ×2 (04:31→14:38)
[2018-03-12 05:59] LABS: PLATELET COUNT 488 10^3/uL (150-400)
[2018-03-12] MEDS: ENOXAPARIN 40 MG/0.4 ML SYR SC SCH (10:43)
--- NOTE | 2018-03-12 11:12 | SOAPPROG ---
SOAP Progress Note Assessment/Plan: Assessment/Plan: 42yo F admitted with abdominal pain, nausea/vomiting Symptoms and story not consistent with appendicitis RUQ US normal Now complaining of bilious emesis Appreciate hospitalist management We will see tomorrow. Seen with Dr. Whelan S: continues to have GI distress. Biggest complaint is bilious emesis. Having fevers again and throat pain has returned O: Laying in bed, no acute distress, mother at bedside No increased WOB +BS, abdomen diffusely tender but not localized to RLQ. No rebound or guarding Objective: Vital Signs Temp Pulse Resp BP Pulse Ox 37.9 C 92 16 137/94 H 93 03/12/18 08:00 03/12/18 08:00 03/12/18 08:00 03/12/18 08:00 03/12/18 08:00 Laboratory Results 03/12/18 05:35 03/12/18 05:35 03/11/18 03/12/18 03/13/18 05:59 05:59 05:59 Intake Total 3000 4632 Balance 3000 4632 PT 13.9 SEC (12.0-15.0) 03/11/18 00:45 INR 1.05 (0.83-1.16) 03/11/18 00:45 ICD10 Worksheet Patient Problems: Problems Problem Status Onset Vomiting Acute Pharyngitis Acute
--- NOTE | 2018-03-12 14:30 | HOSPPROG ---
Hospitalist Progress Note Assessment/Plan: Nausea, vomiting - Suspect gastritis vs PUD with recent atbx, nsaid and steroid use. Lipase nl. Still not tolerating any po, 20 lb weight loss in 2 weeks reported. Surgery consulted for consideration of appendicitis, does not think this is surgical issue and I agree. - Start IV PPI - Send H pylori Ab and fecal Ag - GI consult for possible EGD tomorrow am, NPO at midnight - Clear liquid diet as tolerated for now - Cont IVF's, anti-emetics PRN PITA - Serum creatinine 1.5 on admission, now down to 1.0 with IVF's Leukocytosis - suspect stress response, trending down Recent exudative tonsillitis - S/p 9 days of cephalosporin therapy, will hold further antibiotics for now. Patient denies throat pain. Had neg mono test. Hypernatremia - Improved with IVF's Diet - Clears, ADAT Code - Full Ppx - LMWH Dispo - change to inpt for ongoing GI evaluation Subjective: Pt appears distressed. She c/o ongoing N/V. Says she is going to vomit, but seemed to be more coughing, provocation of post-tussive event. No fevers. No diarrhea. C/O burning epigastric pain. Objective: Vital Signs Temp Pulse Resp BP Pulse Ox 36.6 C 92 16 137/94 H 93 03/12/18 12:30 03/12/18 08:00 03/12/18 08:00 03/12/18 08:00 03/12/18 08:00 Laboratory Results 03/12/18 05:35 03/12/18 05:35 03/11/18 03/12/18 03/13/18 05:59 05:59 05:59 Intake Total 3000 4632 Output Total 150 Balance 3000 4632 -150 PT 13.9 SEC (12.0-15.0) 03/11/18 00:45 INR 1.05 (0.83-1.16) 03/11/18 00:45 - Physical Exam Constitutional: no apparent distress Eyes: PERRL Ears, Nose, Mouth, Throat: moist mucous membranes Cardiovascular: regular rate and rhythym Respiratory: no respiratory distress, clear to auscultation Gastrointestinal: normoactive bowel sounds, soft, non-tender abdomen Skin: warm Musculoskeletal: full muscle strength Neurologic: AAOx3 Psychiatric: interacting appropriately ICD10 Worksheet Patient Problems: Problems Problem Status Onset Vomiting Acute Pharyngitis Acute
[2018-03-12] MEDS: PANTOPRAZOLE SODIUM 40 MG VIAL IVP SCH ×2 (15:17→23:12)
[2018-03-12] MEDS ORDERED: MIDAZOLAM 2 MG/2 ML VIAL ONE ×2 (17:04)
[2018-03-12] MEDS ORDERED: fentaNYL 100 MCG/2 ML INJ ONE (17:05)
--- NOTE | 2018-03-12 17:22 | PDPROPOC ---
Sedation Plan of Care Sedation Plan of Care: mental status noted ASA Classification: ASA 2 Planned drugs: fentanyl, midazolam Mallampati Score: Class 1 Mallampati Reference Image: Patient passed 3-3-2 rule?: Yes
[2018-03-12] MEDS ORDERED: MIDAZOLAM 2 MG/2 ML VIAL IVP ONE (17:52)
[2018-03-12] MEDS ORDERED: fentaNYL 100 MCG/2 ML INJ IVP ONE (17:53)
[2018-03-12] MEDS ORDERED: LORazepam 2 MG/ML INJ IVP PRN (18:05)
--- NOTE | 2018-03-12 18:16 | GIREPORT ---
[facility] Surgical Services - Endoscopy Department Patient Name: Suma Romero Procedure Date: 03/12/2018 5:15 PM Patient Type: Inpatient Attending MD/ ER Physician: Narinder Bey MD Procedure: Upper GI endoscopy Indications: Note dictated, consult appreciated. Providers: Narinder Bey MD Referring MD: Karli Potter MD; Wilbert Welch MD; [facility] Hospitalist service Medicines: Fentanyl 100 micrograms IV, Midazolam 6 mg IV Complications: No immediate complications. Description of Procedure: After obtaining informed consent, the endoscope was passed under direct vision. Throughout the procedure, the patient's blood pressure, pulse, and oxygen saturations were monitored continuously. The Endoscope was intro duced through the mouth, and advanced to the second part of duodenum. Findings: Healing superficial ulcerations on tonsils. No redness seen. The esophagus was normal. The stomach was normal (except for a few very mild antral erosions from ibuprofen use; not significant). Normal duodenum (except a single 8 mm nodule was found in the first por tion of the duodenum. Biopsies were taken with a cold forceps for histology. Doubt significant, and not causing her symptoms). Estimated Blood Loss: none. Post Op Diagnosis: - Essentially normal examination. Overall, suspect her symptoms either due to: a) side-effect to one of h er multiple new medications (prednisone, 'biots, etc.), all just recently stopped, or b) a viral gastroenteritis (which might even be part of the original viral syndrome giving her tonsillitis, etc.). Doubt atypical gallbladder disease, etc. Recommendation: - clears; advance diet as tolerated, but may take days - antiemetics prn - IVFs - antianxiety meds prn - agree with IV PPI for now, to help "cool off" her stomach; once takin g better p.o., can be switched to oral - time We will follow informally. Otherwise, please let us know if we can be o f further help [phone]). Thank you for allowing me to help in t he management of this patient. Attending Participation: I personally performed the entire procedure. Maida Barcenas MD Narinder Bey MD 03/12/2018 6:16:14 PM This report has been signed electronicallyPeter MD Maida Number of Addenda: 0 Note Initiated On: 03/12/2018 5:15 PM [email or web address]
--- NOTE | 2018-03-12 18:21 | GCON ---
[f rep st] CONSULTATION GI INPATIENT CONSULTATION DATE OF CONSULTATION: 03/12/2018 CHIEF COMPLAINT: I was kindly requested to see this patient by Dr. Michell Boo in consultation for a chief complaint of digestive symptoms. HISTORY OF PRESENT ILLNESS: She is a 42-year-old white female who was admitted with epigastric pain, that can radiate to her back. With this, she has had nausea and vomiting. She has had a decreased oral intake. She has had some weight loss. She did have some diarrhea originally, but this has resolved. No hematemesis, blood in the stool. She recently presented with tonsillitis. She was treated with prednisone at 100 mg daily for 5 days, then tapered. She has also been using ibuprofen. She was given some Percocet and Vicodin, but used very little of this. She was originally given clindamycin and amoxicillin, but this gave her side effects. She was changed to cefdinir, which she was taking up until this admission. Beside the above, she also complains of some headache and chest pain. PAST MEDICAL HISTORY: 1. As above. 2. Otherwise, noncontributory. MEDICATIONS: Outpatient medications include the above. Inpatient medications include Protonix 40 mg IV twice a day, just being started. Lovenox, IV fluids, clear liquids. ALLERGIES: Include sulfur, clindamycin, and Zofran. SOCIAL HISTORY: She denies cigarette use. FAMILY HISTORY: Negative for similar nausea and vomiting. REVIEW OF SYSTEMS: Positive pertinent review of systems as per my HPI. Otherwise, a complete review of systems is negative. PHYSICAL EXAMINATION: CONSTITUTIONAL: Nontoxic, somewhat anxious woman. SKIN : Warm, dry. EYES: Pupils equal, round, reactive to light and accommodation. EARS, NOSE, MOUTH, AND THROAT: No masses seen, moist mucosa. CARDIOVASCULAR : Normal S2, normal PMI. RESPIRATORY: Lungs clear to auscultation and percussion anteriorly. ABDOMEN: Mild epigastric tenderness, without rebound. NEUROLOGICAL: Cranial nerves grossly intact, grossly nonfocal. PSYCHIATRIC: Orientation, insight appropriate. MUSCULOSKELETAL: Strength is grossly normal throughout, normal station. LABORATORIES: Include a negative C difficile. Helicobacter pylori serology negative. Platelet count increased at 488,000. Normal coags. Creatinine 1.5 on admission, now normal. Normal liver function tests. Beta HCG negative. Normal lipase. Urinalysis negative. Tox screen negative. CT of the abdomen and pelvis essentially unremarkable. ASSESSMENT: Epigastric pain, with nausea, vomiting. Some diarrhea, but this has resolved. Some other somatic symptoms, such as headache, chest pain. The above could represent an upper gastrointestinal tract source, such as peptic ulcer disease, from her high-dose prednisone, ibuprofen. A side effect to the above medications, especially cefdinir, which she just now stopped on this admission, is also quite possible. A viral syndrome, causing her initial tonsillitis and now multiple somatic symptoms, is also quite possible. PLAN: 1. Urgent upper endoscopy. 2. Further management depending on the above. Thank you for allowing me to help in the care of this patient. /[id number]/MODL MTDD
[2018-03-13] MEDS: D5W 1/2 NS W/ 20 KCl/L 1,000 ML IV SCH (02:48)
[2018-03-13] MEDS: PANTOPRAZOLE SODIUM 40 MG VIAL IVP SCH (08:58)
[2018-03-13] MEDS: ENOXAPARIN 40 MG/0.4 ML SYR SC SCH (09:11)
[2018-03-13 13:32] VITALS: BP 145/102
[2018-03-13] MEDS ORDERED: PANTOPRAZOLE SODIUM 40 MG TAB PO SCH (13:45)
--- NOTE | 2018-03-13 22:33 | SOAPPROG ---
SOAP Progress Note Assessment/Plan: Assessment/Plan: Please see my EGD report from yesterday, for A/P/Recs. Agree with d/c home. I will sign off. I will f/u on bxs, but suspect will be noncontributory. Thanks! 03/13/18 22:30 Subjective: cc: digestive symptoms Feeling better. Less abdominal pain, nausea. No rigors, chills, sweats. Objective: Vital Signs Temp Pulse Resp BP Pulse Ox 37.2 C 95 17 145/102 H 95 03/13/18 12:00 03/13/18 12:00 03/13/18 12:00 03/13/18 13:00 03/13/18 12:00 Laboratory Results 03/13/18 05:30 03/12/18 05:35 03/12/18 03/13/18 03/14/18 05:59 05:59 05:59 Intake Total 4632 1830 Output Total 150 Balance 4632 1680 PT 13.9 SEC (12.0-15.0) 03/11/18 00:45 INR 1.05 (0.83-1.16) 03/11/18 00:45 Duodenal nodule bx pending. Physical Exam - Physical Exam General Appearance: WD/WN, alert, no apparent distress EENT: PERRL/EOMI, normal ENT inspection, pharynx normal, TMs normal Neck: non-tender, full range of motion, supple, normal inspection Respiratory: chest non-tender, lungs clear, normal breath sounds Cardiac/Chest: normal peripheral pulses, regular rate, rhythm Peripheral Pulses: 2+: carotid (R), carotid (L), femoral (R), femoral (L), dorsalis-pedis (R), dorsalis-pedis (L) Abdomen: normal bowel sounds, non-tender, soft Pelvic Exam: deferred Rectal: deferred Back: Normal inspection Skin: normal color, warm/dry Lymphatic: no adenopathy Extremities: normal range of motion, non-tender, normal inspection, normal capillary refill Neuro/Psych: no motor/sensory deficits, alert, normal mood/affect, oriented x 3 ICD10 Worksheet Patient Problems: Problems Problem Status Onset Pharyngitis Acute Vomiting Acute
--- NOTE | 2018-03-14 00:50 | GDS ---
[f rep st] DISCHARGE SUMMARY DISCHARGE DIAGNOSES: 1. Nausea, vomiting, resolved. 2. Exudative tonsillitis, improved. 3. Acute kidney injury, resolved. 4. Leukocytosis, likely secondary to stress response with nausea and vomiting, resolved. 5. Hypernatremia, improved with intravenous fluids. CONSULTANTS: Dr. Narinder Bey, Gastroenterology. PROCEDURES: Upper endoscopy March 12, 2018, performed by Dr. Narinder Bey, showed normal esophagus and normal stomach except for a few very mild antral erosions. Normal duodenum except for single 8 mm n odule in the 1st portion of the duodenum. Biopsies were taken and are currently pending. HISTORY: For details, please see History and Physical dated March 11, 2018. In brief, the patient i s a 42-year-old female with no significant past medical history, who was recently admitted to the [facility] for tonsillitis, returns with nausea and vomiting. Her tonsillitis was treated with 9 days of cefdinir. In addition, she received prednisone. Upon arrival, she has had refractory nausea and vom iting, was admitted to the hospital for further management. HOSPITAL COURSE: Patient admitted to the medical-surgical unit. She had abdominal CT and abdominal ultrasound. The former suggested possibly an early appendicitis. Surgical consult was obtained. Ul timately, she was not deemed to have a surgical abdomen. She received IV fluids and antiemetics. He r creatinine normalized. Her white count trended down. Given her inability to tolerate p.o. and stefanie oing symptoms, GI consult was obtained and she underwent upper endoscopy with results above. She was treated with Protonix 40 mg IV twice daily. This was transitioned to oral at discharge and she will continue this once daily in the outpatient setting. It is suspected that her symptoms may have been provoked by her antibiotics and prednisone and anti-inflammatory use. DISPOSITION: Patient is discharged home in stable condition. FOLLOWUP: The patient is to follow up with her primary care physician as well as Dr. Narinder [facility], [facility], for results of her biopsy. DISCHARGE MEDICATIONS: Please see [facility] for completed outpatient medication list. New medication s on discharge include Protonix 40 mg daily #30, no refills; Pepcid 20 mg p.o. twice daily, #14, no r efills. She will continue p.r.n. Phenergan. Omnicef is discontinued. /[id number]/MODL
== END 2018-03-13 17:00 | disposition home or self-care (01) ==
LOC: FOB 03-11 06:28
PROVIDERS: ADMIT Student in an Organized Health Care Education/Training Program; ATTEND Hospitalist
PROC: 0DB98ZX Excision of Duodenum, Via Natural or Artificial Opening Endoscopic, Diagnostic (ICD-10-PCS; principal; 2018-03-11)
DX: R11.2 Nausea with vomiting, unspecified (principal); J03.90 Acute tonsillitis, unspecified; N17.9 Acute kidney failure, unspecified; E87.0 Hyperosmolality and hypernatremia; E86.9 Volume depletion, unspecified; D72.829 Elevated white blood cell count, unspecified; K31.89 Other diseases of stomach and duodenum; N83.8 Other noninflammatory disorders of ovary, fallopian tube and broad ligament; R10.9 Unspecified abdominal pain; Z88.2 Allergy status to sulfonamides
CPT/HCPCS: 43239; 74177; 76705; 96361; 96374; 96375; 99285; G0378; 80305; 87338-90; J1630; J2060; J2250; J2550; J3010; Q9967

== ENCOUNTER 2018-03-13 23:22 | Inpatient (IN) | payer OTHER ==
--- NOTE | 2018-03-13 23:27 | EDPHY ---
H & P Stated Complaint: Vomiting, discharged today Time Seen by Provider: 03/13/18 23:27 HPI/ROS: HPI CHIEF COMPLAINT: Nausea and vomiting discharged today HISTORY OF PRESENT ILLNESS: Patient 42-year-old female she presents emergency room with ongoing nausea vomiting. Patient was just discharged around 3 o' clock this afternoon. She states she went home and started vomiting again. She states she vomited multiple times nonbloody. She has ongoing nausea so she decided come back to the emergency room with continuous vomiting. Denies significant abdominal pain chest pain or shortness of breath. Main complaint nausea vomiting. No diarrhea. No fever. Recent hospitalization progress notes and discharge summary in H&P reviewed. Recent EGD reviewed. EGD by Dr. Bey was unremarkable. It was thought that her nausea vomiting may be due or viral process versus all the recent medication she has been on. Past Medical History: Recent tonsillitis, recent antibiotics for tonsillitis. Past Surgical History: Recent EGD. Social History: Denies drugs alcohol tobacco. Lives locally. Family History: Noncontributory ROS REVIEW OF SYSTEMS: A comprehensive 10 point review of systems is otherwise negative aside from elements mentioned in the history of present illness. Exam Constitutional nontoxic, anxious, triage nursing summary reviewed, vital signs reviewed, awake/alert. Eyes normal conjunctivae and sclera, EOMI, PERRLA. HENT normal inspection, atraumatic, moist mucus membranes, no epistaxis, neck supple/ no meningismus, no raccoon eyes. Respiratory clear to auscultation bilaterally, normal breath sounds, no respiratory distress, no wheezing. Cardiovascular rate normal, regular rhythm, no murmur, no edema, distal pulses normal. Gastrointestinal soft, non-tender, no rebound, no guarding, normal bowel sounds, no distension, no pulsatile mass. Genitourinary no CVA tenderness. Musculoskeletal no midline vertebral tenderness, full range of motion, no calf swelling, no tenderness of extremities, no meningismus, good pulses, neurovascularly intact. Skin pink, warm, & dry, no rash, skin atraumatic. Neurologic awake, alert and oriented x 3, AAOx3, moves all 4 extremities equally, motor intact, sensory intact, CN II-XII intact, normal cerebellar, normal vision, normal speech. Psychiatric normal mood/affect. Heme/Lymph/Immune no lymphadenopathy. Differential diagnosis includes but is not limited to and in no particular order : Gastritis, anxiety, panic attack, ongoing nausea vomiting Bowel obstruction , appendicitis, gallbladder disease, diverticulitis, colitis, enteritis, perforated viscus, gastritis, GERD, esophagitis, urinary tract infection, pyelonephritis, kidney stones Medical Decision Making: Plan for this patient IV establishment IV fluid bolus , check electrolytes, IV Haldol 5 mg for nausea vomiting, IV Benadryl, IV Pepcid , KUB and chest x-ray re-evaluate. Re-evaluation: ED x-ray chest in KUB. Negative for abnormal bowel gas pattern. No free air. 1235: Patient re-evaluate she is resting comfortably. Abdomen remained soft. Blood work and x-rays reviewed. Plan for admission to the hospital. Due to ongoing nausea vomiting. 1244AM: I have asked the hospitalist service Dr. Tesfaye to admit patient. Patient requesting hospital admission due to intractable nausea vomiting. Abdomen is soft not peritoneal. Source: Patient - Personal History LMP (Females 10-55): Unknown Current Tetanus Diphtheria and Acellular Pertussis (TDAP): Yes Tetanus Vaccine Date: < 10 years - Medical/Surgical History Hx Asthma: No Hx Chronic Respiratory Disease: No Hx Diabetes: No Hx Cardiac Disease: No Hx Renal Disease: No Hx Cirrhosis: No Hx Alcoholism: No Hx HIV/AIDS: No Hx Splenectomy or Spleen Trauma: No Other PMH: Denies - Social History Smoking Status: Never smoked Constitutional: Initial Vital Signs Temperature (C) 36.7 C 03/13/18 23:25 Heart Rate 115 H 03/13/18 23:25 Respiratory Rate 20 03/13/18 23:25 Blood Pressure 138/103 H 03/13/18 23:25 O2 Sat (%) 95 03/13/18 23:25 O2 Delivery Mode Room Air Allergies/Adverse Reactions: Sulfa (Sulfonamide Antibiotics) Allergy (Severe, Verified 03/13/18 23:25) Hives clindamycin Allergy (Intermediate, Verified 03/13/18 23:25) Vomiting cefdinir Allergy (Verified 03/14/18 07:54) Vomiting ondansetron [From Zofran (as hydrochloride)] Allergy (Verified 03/14/18 07:54) migraine promethazine [From Phenergan] Allergy (Verified 03/14/18 07:54) Vomiting Home Medications: Medication Instructions Recorded Famotidine [Pepcid 20 MG (*)] 20 mg PO BID #14 tab 03/11/18 Pantoprazole Sodium [Protonix 40mg 40 mg PO DAILY #30 tab 03/13/18 (*)] Acetaminophen [Tylenol 325mg (*)] 325 mg PO DAILY PRN 03/14/18 Ibuprofen [Motrin (*)] 200 mg PO DAILY PRN 03/14/18 Multivitamins [Multivitamin (*)] 1 each PO DAILY 03/14/18 Medical Decision Making - Data Points Laboratory Results: Laboratory Results 03/13/18 23:38 03/13/18 23:38 Medications Given: Famotidine (Pepcid) 20 mg PO HS MYRNA Stop: 09/10/18 20:59 Last Admin: 03/14/18 20:00 Dose: Not Given Dextrose/Sodium Chloride (D5w 1/2 Ns) 1,000 mls @ 100 mls/hr IV CONT MYRNA Stop: 09/10/18 01:14 Last Admin: 03/14/18 03:23 Dose: 1,000 mls Lorazepam (Ativan Injection) 0.5 - 1 mg IVP Q6H PRN PRN Reason: Nausea Stop: 09/10/18 01:01 Last Admin: 03/14/18 17:19 Dose: 0.5 mg Pantoprazole Sodium (Protonix) 40 mg IVP BID MYRNA Stop: 09/10/18 01:14 Last Admin: 03/14/18 20:01 Dose: 40 mg Discontinued Medications Diphenhydramine HCl (Benadryl Injection) 25 mg IVP EDNOW ONE Stop: 03/13/18 23:30 Last Admin: 03/13/18 23:41 Dose: 25 mg Diphenhydramine HCl (Benadryl Injection) 25 mg IVP EDNOW ONE Stop: 03/13/18 23:56 Last Admin: 03/13/18 23:56 Dose: 25 mg Famotidine (Pepcid) 20 mg IVP EDNOW ONE Stop: 03/13/18 23:30 Last Admin: 03/13/18 23:41 Dose: 20 mg Haloperidol Lactate (Haldol Injection) 5 mg IVP EDNOW ONE Stop: 03/13/18 23:30 Last Admin: 03/13/18 23:41 Dose: 5 mg Sodium Chloride (Ns) 1,000 mls @ 0 mls/hr IV EDNOW ONE; Wide Open PRN Reason: Protocol Stop: 03/13/18 23:29 Last Admin: 03/13/18 23:41 Dose: 1,000 mls Sodium Chloride (Ns) 1,000 mls @ 0 mls/hr IV EDNOW ONE; Wide Open PRN Reason: Protocol Stop: 03/13/18 23:29 Last Admin: 03/13/18 23:55 Dose: 1,000 mls Lorazepam (Ativan Injection) 0.5 - 1 mg IVP Q8HRS PRN PRN Reason: Nausea Stop: 09/10/18 01:01 Last Admin: 03/14/18 11:09 Dose: 0.5 mg Departure - Departure Disposition: [facility] Clinical Impression: Vomiting Qualifiers: Vomiting type: unspecified Vomiting Intractability: non-intractable Nausea presence: with nausea Qualified Code(s): R11.2 - Nausea with vomiting, unspecified Condition: Fair
[2018-03-13] MEDS ORDERED: NS 1,000 ML IV ONE ×2 (23:28)
[2018-03-13] MEDS ORDERED: FAMOTIDINE 20 MG/2 ML SDV IVP ONE (23:29)
[2018-03-13] MEDS ORDERED: HALOPERIDOL LACT 5 MG/ML INJ IVP ONE (23:29)
[2018-03-13 23:47] LABS: PLATELET COUNT 603 10^3/uL (150-400)
[2018-03-14] MEDS ORDERED: ACETAMINOPHEN 325 MG TAB PO PRN (01:02)
[2018-03-14] MEDS ORDERED: LORazepam 2 MG/ML INJ IVP PRN (01:02)
[2018-03-14] MEDS ORDERED: HALOPERIDOL LACT 5 MG/ML INJ IVP PRN (01:05)
--- NOTE | 2018-03-14 01:09 | PDGENHP ---
History and Physical - Chief Complaint Nausea, vomiting - History of Present Illness 42 yo F w/ multiple recent visits for nausea and vomiting presents with the same. Patient was discharged earlier on the same day after feeling somewhat better. She underwent an EGD that was essentially normal except for some mild erosions probably related to steroid and NSAID therapies. Patient was only home for a few hours before symptoms returned. She is not able to elaborate much at the time since she is quite sedated after Haldol and Benadryl received in the ED. Her mother, who is at bedside, states that Zofran and Phenergan exacerbate her symptoms. History Information - Allergies/Home Medication List Allergies/Adverse Reactions: Sulfa (Sulfonamide Antibiotics) Allergy (Severe, Verified 03/13/18 23:25) Hives clindamycin Allergy (Intermediate, Verified 03/13/18 23:25) Vomiting cefdinir Allergy (Verified 03/13/18 23:25) ondansetron [From Zofran (as hydrochloride)] Allergy (Verified 03/13/18 23:25) I have personally reviewed and updated: family history, medical history - Past Medical History Additional medical history: Exudative tonisillitis - Family History Additional family history: Denies - Social History Smoking Status: Never smoked Review of Systems Review of Systems: ROS: 10pt was reviewed & negative except for what was stated in HPI & below Physical Exam Physical Exam: Temp Pulse Resp BP Pulse Ox 36.7 C 88 16 120/77 94 03/14/18 00:46 03/14/18 00:46 03/14/18 00:46 03/14/18 00:46 03/14/18 00:46 Constitutional: appears nourished, uncomfortable Eyes: PERRL, EOMI Ears, Nose, Mouth, Throat: moist mucous membranes, no oral mucosal ulcers Cardiovascular: regular rate and rhythym, no murmur, rub, or gallop Respiratory: no respiratory distress, no rales or rhonchi Gastrointestinal: normoactive bowel sounds, tenderness (Mild, epi-gastric), No guarding, No rebound, No distension Skin: warm, normal color Musculoskeletal: full muscle strength, no muscle tenderness Neurologic: AAOx3, CN II-XII Intact Psychiatric: interacting appropriately, not anxious Lab Data & Imaging Review 03/13/18 23:38 03/13/18 23:38 WBC 11.94 10^3/uL (3.80-9.50) H 03/13/18 23:38 RBC 4.85 10^6/uL (4.18-5.33) 03/13/18 23:38 Hgb 15.0 g/dL (12.6-16.3) 03/13/18 23:38 Hct 42.5 % (38.0-47.0) 03/13/18 23:38 MCV 87.6 fL (81.5-99.8) 03/13/18 23:38 MCH 30.9 pg (27.9-34.1) 03/13/18 23:38 MCHC 35.3 g/dL (32.4-36.7) 03/13/18 23:38 RDW 11.5 % (11.5-15.2) 03/13/18 23:38 Plt Count 603 10^3/uL (150-400) H D 03/13/18 23:38 MPV 9.9 fL (8.7-11.7) 03/13/18 23:38 Neut % (Auto) 63.3 % (39.3-74.2) 03/13/18 23:38 Lymph % (Auto) 24.8 % (15.0-45.0) 03/13/18 23:38 Dickey % (Auto) 9.7 % (4.5-13.0) 03/13/18 23:38 Eos % (Auto) 1.3 % (0.6-7.6) 03/13/18 23:38 Baso % (Auto) 0.5 % (0.3-1.7) 03/13/18 23:38 Nucleat RBC Rel Count 0.0 % (0.0-0.2) 03/13/18 23:38 Absolute Neuts (auto) 7.55 10^3/uL (1.70-6.50) H 03/13/18 23:38 Absolute Lymphs (auto) 2.96 10^3/uL (1.00-3.00) 03/13/18 23:38 Absolute Monos (auto) 1.16 10^3/uL (0.30-0.80) H 03/13/18 23:38 Absolute Eos (auto) 0.16 10^3/uL (0.03-0.40) 03/13/18 23:38 Absolute Basos (auto) 0.06 10^3/uL (0.02-0.10) 03/13/18 23:38 Absolute Nucleated RBC 0.00 10^3/uL (0-0.01) 03/13/18 23:38 Immature Gran % 0.4 % (0.0-1.1) 03/13/18 23:38 Immature Gran # 0.05 10^3/uL (0.00-0.10) 03/13/18 23:38 Sodium 145 mEq/L (135-145) 03/13/18 23:38 Potassium 4.1 mEq/L (3.5-5.2) 03/13/18 23:38 Chloride 108 mEq/L (97-110) 03/13/18 23:38 Carbon Dioxide 24 mEq/l (22-31) 03/13/18 23:38 Anion Gap 13 mEq/L (8-16) 03/13/18 23:38 BUN 8 mg/dL (7-23) 03/13/18 23:38 Creatinine 1.0 mg/dL (0.6-1.0) 03/13/18 23:38 Estimated GFR > 60 03/13/18 23:38 Glucose 107 mg/dL (70-100) H 03/13/18 23:38 Calcium 10.2 mg/dL (8.5-10.4) D 03/13/18 23:38 Total Bilirubin 1.3 mg/dL (0.1-1.4) D 03/13/18 23:38 Conjugated Bilirubin 0.4 mg/dL (0.0-0.5) 03/13/18 23:38 Unconjugated Bilirubin 0.9 mg/dL (0.0-1.1) 03/13/18 23:38 AST 32 IU/L (14-46) 03/13/18 23:38 ALT 55 IU/L (9-52) H 03/13/18 23:38 Alkaline Phosphatase 80 IU/L (38-126) 03/13/18 23:38 Total Protein 8.5 g/dL (6.3-8.2) H D 03/13/18 23:38 Albumin 4.5 g/dL (3.5-5.0) 03/13/18 23:38 Lipase 385 IU/L (23-300) H 03/13/18 23:38 Assessment & Plan Assessment: 42 yo F w/ multiple recent admissions for nausea and vomiting represents with the same. Plan: 1. Nausea, vomiting - Recently discharged after work-up including EGD and surgical consultation. Symptoms were attributed to likely gastritis from steroid and NSAID use. Symptoms returned shortly after discharge and patient has been unable to tolerate PO. H. Pylori IgG negative. - Admit for observation - Clear liquid diet, ADAT, mIVF - Patient states Zofran and Phenergan make symptoms worse; will order Ativan and Haldol PRN for nausea - PPI IV BID as this may be helping - Lipase and ALT mildly elevated on admission w/ unclear significance; EBV and CMV negative - Abdomen remains non-surgical; soft w/ only mild epi-gastric tenderness - Will check AM cortisol to screen for adrenal insufficiency; also send TSH Diet - Clears, ADAT Code - Full Ppx - Low risk Dispo - Admit under observation status
[2018-03-14] MEDS ORDERED: D5W 1/2 NS 1,000 ML IV SCH (01:15)
[2018-03-14] MEDS: PANTOPRAZOLE SODIUM 40 MG VIAL IVP SCH ×3 (03:23→20:01)
[2018-03-14 08:21] LABS: PLATELET COUNT 518 10^3/uL (150-400)
--- NOTE | 2018-03-14 13:52 | ASMTCMCOM ---
CM Note CM Note Notes: 03/14/2018 Case Management Note Met pt during rounds this morning. Pt admitted for nausea and vomiting after recent d/c from [facility] on 03/13. Pt mom visiting from [place] also present during rounds. There are no identified d/c needs for case management d/t pt age, mobility prior to admission and family support. There are no PT or OT evals ordered at this time. PT ambulates without difficulty. Case Management d/c poc: independent with follow up as directed. Case Management available if needs change. Date Signed: 03/14/2018 01:52 PM Electronically Signed By:Lauren Harris RN
--- NOTE | 2018-03-14 14:33 | HOSPPROG ---
Hospitalist Progress Note Assessment/Plan: Refractory N/V - EGD yesterday relatively normal. Mild gastric erosions noted. She can't tolerate zofran or phenergan, but has responded to ativan and haldol and notes anxiety component. Symptoms improved today. -cont prn ativan -she is tolerating liquids now, no vomiting today. advance diet slowly Recent exudative tonsillitis - s/p 9 days cephalosporin and prednisone, which may have provoked the above. No further symptoms. Full code Dispo - obs Subjective: Pt feels better today, ativan and haldol helped. No further vomiting or nausea. She is tolerating liquids, hasn't tried solid foods. No fevers. No curtis or vision changes Objective: Vital Signs Temp Pulse Resp BP Pulse Ox 36.7 C 94 15 137/106 H 93 03/14/18 08:45 03/14/18 08:45 03/14/18 08:45 03/14/18 08:45 03/14/18 08:45 Laboratory Results 03/14/18 08:10 03/14/18 08:10 03/13/18 03/14/18 03/15/18 05:59 05:59 05:59 Intake Total 2400 Balance 2400 - Physical Exam Constitutional: no apparent distress Eyes: PERRL Ears, Nose, Mouth, Throat: moist mucous membranes Cardiovascular: regular rate and rhythym Respiratory: no respiratory distress Gastrointestinal: normoactive bowel sounds, soft, non-tender abdomen Skin: warm Musculoskeletal: full muscle strength Neurologic: AAOx3 Psychiatric: interacting appropriately ICD10 Worksheet Patient Problems: Problems Problem Status Onset Vomiting Acute Pharyngitis Acute
[2018-03-14] MEDS: LORazepam 2 MG/ML INJ IVP PRN ×2 (17:19→23:25)
[2018-03-14] MEDS: FAMOTIDINE 20 MG TAB PO SCH (20:00)
[2018-03-15] MEDS: LORazepam 2 MG/ML INJ IVP PRN ×3 (06:12→21:07)
[2018-03-15] MEDS: PANTOPRAZOLE SODIUM 40 MG VIAL IVP SCH (08:20)
--- NOTE | 2018-03-15 09:22 | HOSPPROG ---
Hospitalist Progress Note Assessment/Plan: Refractory N/V - EGD 03/13 relatively normal. Mild gastric erosions noted. She can't tolerate zofran or phenergan, but has responded to ativan and haldol and notes anxiety component. Symptoms improved today. -cont prn ativan -cont PPI -she is tolerating liquids, cont to advance diet slowly. Recent exudative tonsillitis - s/p 9 days cephalosporin and prednisone, which may have provoked the above. No further symptoms. Hypertension - persistently elevated BP's, 150/111 this am -start low dose lisinopril Full code Dispo - change to inpt for ongoing management of N/V, htn. Probable d/c in am. Subjective: Pt feels better. Tolerating liquids, hasn't had much solid food. No CP or SOB. No curtis or vision changes Objective: Vital Signs Temp Pulse Resp BP Pulse Ox 36.9 C 112 H 15 151/111 H 94 03/15/18 07:42 03/15/18 07:42 03/15/18 07:42 03/15/18 08:34 03/15/18 07:42 Laboratory Results 03/14/18 08:10 03/14/18 08:10 03/14/18 03/15/18 03/16/18 05:59 05:59 05:59 Intake Total 2400 350 Balance 2400 350 - Physical Exam Constitutional: no apparent distress Eyes: PERRL Ears, Nose, Mouth, Throat: moist mucous membranes Cardiovascular: regular rate and rhythym Respiratory: no respiratory distress, clear to auscultation Gastrointestinal: normoactive bowel sounds, soft, non-tender abdomen Skin: warm Musculoskeletal: full muscle strength Neurologic: AAOx3 Psychiatric: interacting appropriately ICD10 Worksheet Patient Problems: Problems Problem Status Onset Vomiting Acute Pharyngitis Acute
--- NOTE | 2018-03-15 09:58 | PDMN ---
Medical Necessity Medical necessity: C/M review: Patient meets INPT criteria under MCG M-370 Vomiting: Acute and persistent refractory nausea, vomiting, poor oral intake, patient oral intake 350 ml clear liquids in prior 24 hrs. 03/14/2018 to 03/15/2018 , hypertension - persistently elevated BP's, BP 150/111 03/15/2018 08:34 AM, requiring IV fluids, IV Protonix BID 03/14/2018 to 03/15/2018 AM, ongoing IV Ativan Q 6 hrs. (ordered as needed Q 6 hrs), transition to oral Ativan Q 6 hrs. as needed, transition to oral Protonix BID, initiate oral Lisiniopril QD, comorbid patient inability to tolerate Zofran or Phenergan - patient notes an anxiety component, 03/11/2018 to 03/13/2018 observation hospitalization for nausea , vomiting, EGD 03/13/2018 done during that hospital stay was relatively normal, recent exudative tonsillitis S/P 9 days of cephalosporin and prednisone which may have provoked nausea and vomiting - no further symptoms of exudative tonsillitis. anticipates > 2 [place] LOS for ongoing med nec for eval and TX of above.
[2018-03-15] MEDS: LISINOPRIL 5 MG TAB PO SCH (10:18)
[2018-03-15] MEDS: LORazepam 0.5 MG TAB PO PRN (19:12)
[2018-03-15] MEDS: FAMOTIDINE 20 MG TAB PO SCH (20:26)
[2018-03-15] MEDS: PANTOPRAZOLE SODIUM 40 MG TAB PO SCH (20:26)
[2018-03-16 08:24] VITALS: BP 128/93
[2018-03-16] MEDS: SUCRALFATE 1 GM/10 ML UDCUP PO SCH ×2 (08:57→12:12)
[2018-03-16] MEDS: PANTOPRAZOLE SODIUM 40 MG TAB PO SCH (10:13)
[2018-03-16] MEDS: LORazepam 0.5 MG TAB PO PRN (10:13)
[2018-03-16] MEDS: LISINOPRIL 5 MG TAB PO SCH (10:13)
--- NOTE | 2018-03-16 10:43 | ASDISCHSUM ---
Discharge Information Plan Status:Home with No Needs Medically Cleared to Leave:03/16/2018 Discharge Date:03/16/2018 CM D/C Disposition:Home, Routine, Self-Care ADT D/C Disposition:Home, Routine, Self-Care Projected Discharge Date:03/16/2018 12:00 PM Transportation at D/C:Family Discharge Delay Reason: Follow-Up Date:03/16/2018 12:00 PM Discharge Slot: Final Diagnosis:N/V, HTN Placement Information Patient Contact Information Contact Name:DOMINGO Relationship: Address: Home Phone: Work Phone: City: Alternate Phone: State/[place] Code: Email: Financial Information Financial Class:O and PPO Plans Primary Plan Desc:[employer] Primary Plan Number:[id number] Secondary Plan Desc: Secondary Plan Number: Assessment Information [facility] CM Progress Note CM Note CM Note Notes: 03/14/2018 Case Management Note Met pt during rounds this morning. Pt admitted for nausea and vomiting after recent d/c from [facility] on 03/13. Pt mom visiting from [place] also present during rounds. There are no identified d/c needs for case management d/t pt age, mobility prior to admission and family support. There are no PT or OT evals ordered at this time. PT ambulates without difficulty. Case Management d/c poc: independent with follow up as directed. Case Management available if needs change. Date Signed: 03/14/2018 01:52 PM Electronically Signed By:Lauren Harris RN Case Management Discharge Plan Note Case Management Discharge Discharge Order Complete? Answers: Yes Transportation Arranged Answers: Family/Friends Transport will Pick (Date 03/16/2018 12:00 PM & Time) Family Notified Answers: Yes Notes: Mother to transport Discharge Comments Notes: Patient has been discharged home. No discharge needs noted. Date Signed: 03/16/2018 10:42 AM Electronically Signed By:Rosmery Son LCSW Intervention Information
--- NOTE | 2018-03-16 18:41 | GDS ---
[f rep st] DISCHARGE SUMMARY DISCHARGE DIAGNOSES: 1. Refractory nausea and vomiting, resolved. 2. Mild gastric erosions seen on EGD. 3. Recent exudative tonsillitis, status post 9 days of antibiotic therapy. 4. Hypertension. HISTORY: Please see history and physical dated March 14, 2018. In brief, the patient is a 42-year-o ld female who was recently treated with 9 days of antibiotics for an exudative tonsillitis, was admit anna to the hospital earlier in the week for nausea and vomiting. During that recent hospitalization, she underwent an EGD, which shows some mild gastric erosions likely related to her recent steroid an ti-inflammatory use. She was discharged home but returned that same evening after vomiting while in the pharmacy. She was readmitted to the hospital for further management. HOSPITAL COURSE: Although the patient had recurrent nausea and vomiting, she had no electrolyte abno rmality on admission. She did not tolerate Zofran or Phenergan and instead received Ativan and Haldo l for symptom management. In addition, she has been treated with b.i.d. Protonix. I have also added sucralfate. The patient acknowledges there is likely a stress component to her symptoms. I suspect that she had acid irritation and early erosive changes of her stomach due to her recent anti-inflamm atories and prednisone course in the setting of her exudative tonsillitis. Her symptoms have slowly improved. She has been able to tolerate oral intake to maintain hydration. She had a normal morning cortisol and a normal TSH. There is a very mild elevation of her lipase on arrival, though I suspec t this may be secondary to her recent vomiting. She had not vomited for 48 hours at the time of disc harge, and again, is tolerating oral intake. She has had persistently elevated blood pressures durin g this hospitalization with diastolic pressures greater than 100 on repeated measurements. Therefore , she was started on lisinopril 5 mg p.o. daily. She has tolerated this well. Her blood pressure im proved to 128/93 on the day of discharge. She should have close outpatient followup for both her GI symptoms and recheck her blood pressure. DISPOSITION: Patient is discharged home in stable condition. DISCHARGE MEDICATIONS: Please see [facility] for completed outpatient medication list. New medications on discharge include lisinopril 5 mg p.o. daily, #30, no refills, lorazepam 0.5 mg p.o. t.i.d. p.r.n ., #10, no refills, Phenergan 12.5 mg suppository p.r. q.8 hours p.r.n., #10, no refills, sucralfate 1 g p.o. a.c. and h.s., mL, no refills. Discontinued medications: Ibuprofen. The patien t will continue Protonix 40 mg p.o. daily, Pepcid 20 mg p.o. b.i.d. p.r.n., multivitamin, and Tylenol as needed. FOLLOWUP: Dr. Karli Potter, primary care to recheck her blood pressure and up titrate her lisinopril as indicated. /[id number]/MODL
== END 2018-03-16 12:51 | disposition home or self-care (01) | DRG 392 ==
LOC: OBSVTOIN 03-14 00:41 → F2W 03-14 02:34
PROVIDERS: ADMIT Student in an Organized Health Care Education/Training Program; ATTEND Student in an Organized Health Care Education/Training Program
DX: R11.2 Nausea with vomiting, unspecified (principal); I10 Essential (primary) hypertension; K25.9 Gastric ulcer, unspecified as acute or chronic, without hemorrhage or perforation; Z98.890 Other specified postprocedural states
CPT/HCPCS: 96374; G0378; J1200; J1630; J2060

== ENCOUNTER → 2019-05-22 | Outpatient (CLI) | payer OTHER | LOC: FIMAGING 13:31 ==